=== PATIENT | male | born 1965 | race Hispanic/Latino ===

== ENCOUNTER 2017-09-13 23:44 | Inpatient (IN) | payer BC ==
[2017-09-14] MEDS ORDERED: Sodium Chloride 0.9% 1,000 ML IV STA (00:10)
[2017-09-14] MEDS ORDERED: Ciprofloxacin 400mg/200ml D5W 400 MG/200 ML BAG IVPB STA (00:12)
[2017-09-14] MEDS ORDERED: metroNIDAZOLE IV 500 mg/100 ml 500 MG/100 ML BAG IVPB STA (00:12)
[2017-09-14] MEDS ORDERED: Iohexol 350 MG/100 ML VIAL ONE (00:18)
--- NOTE | 2017-09-14 00:34 | ED PDOC ---
Arrival/HPI - General Chief Complaint: GI Problem Time Seen by Provider: 09/14/17 00:09 Historian: Patient - History of Present Illness Narrative History of Present Illness (Text): 09/14/17 00:32 A 52 year old male presents to the emergency department complaining of left lower quadrant abdominal pain. Patient was seen and treated at [facility] in [place], [place] on 09/08/17. Patient was diagnosed with diverticulitis and had a CAT scan of abdomen/pelvis done. Presents to the emergency department with discharge paperwork that revealed sigmoid diverticulitis 10 mm by 20 mm in the sigmoid colon. Patient was offered admission but declined. Patient was treated with Cipro and Flagyl for a week. Reports pain is still present with no significant improvement. Patient notes loose stools but denies any fever, chills, nausea, vomiting, recent travels, back pain, urinary symptoms or any other complaints at this time. GI recommended that if pain does not improve in 2-3 days, patient to be admitted to hospital for IV fluids. PMD: Dr. Chauhan Symptom Onset: Sudden Symptom Course: Unchanged Activities at Onset: Rest Context: Home Past Medical History - Provider Review Nursing Documentation Reviewed: Yes - Cardiac Hx Pacemaker: No - Neurological Hx Paralysis: No - Hematological/Oncological Hx Blood Transfusions: No Hx Blood Transfusion Reaction: No - Musculoskeletal/Rheumatological Hx Musculoskeletal Disorders: Yes - Gastrointestinal Hx Diverticulitis: Yes - Psychiatric Hx Emotional Abuse: No Hx Physical Abuse: No Hx Substance Use: No - Anesthesia Hx Anesthesia Reactions: No Hx Malignant Hyperthermia: No - Suicidal Assessment Feels Threatened In Home Enviroment: No Family/Social History - Physician Review Nursing Documentation Reviewed: Yes Family/Social History: No Known Family HX Smoking Status: y Hx Alcohol Use: Yes (A "FEW" BEERS EVERY WEEK) Hx Substance Use: No Allergies/Home Meds Allergies/Adverse Reactions: Allergies No Known Allergies Allergy (Verified 07/05/16 08:15) Home Medications: Home Meds Medication Instructions Recorded Confirmed Ciprofloxacin [Cipro] 500 mg PO BID 09/13/17 09/14/17 metroNIDAZOLE [Flagyl] 500 mg PO TID 09/13/17 09/14/17 Review of Systems - Physician Review All systems were reviewed & negative as marked: Yes - Review of Systems Constitutional: absent: Fevers, Other (chills) Gastrointestinal: Abdominal Pain (LLQ), Other (loose stools). absent: Nausea, Vomiting Genitourinary Male: absent: Dysuria, Frequency, Hematuria Musculoskeletal: absent: Back Pain Physical Exam Vital Signs Reviewed: Yes Vital Signs Temp Pulse Resp BP Pulse Ox 09/13/17 23:48 97.7 F 72 18 118/72 99 Temperature: Afebrile Blood Pressure: Normal Pulse: Regular Respiratory Rate: Normal Appearance: Positive for: Well-Appearing, Non-Toxic, Comfortable Pain Distress: None Mental Status: Positive for: Alert and Oriented X 3 - Systems Exam Head: Present: Atraumatic, Normocephalic Pupils: Present: PERRL Extroacular Muscles: Present: EOMI Conjunctiva: Present: Normal Mouth: Present: Moist Mucous Membranes Neck: Present: Normal Range of Motion Respiratory/Chest: Present: Clear to Auscultation, Good Air Exchange. No: Respiratory Distress, Accessory Muscle Use Cardiovascular: Present: Regular Rate and Rhythm, Normal S1, S2. No: Murmurs Abdomen: Present: Tenderness (LLQ), Normal Bowel Sounds. No: Distention, Peritoneal Signs Back: Present: Normal Inspection Upper Extremity: Present: Normal Inspection. No: Cyanosis, Edema Lower Extremity: Present: Normal Inspection. No: Edema Neurological: Present: GCS=15, CN II-XII Intact, Speech Normal Skin: Present: Warm, Dry, Normal Color. No: Rashes Psychiatric: Present: Alert, Oriented x 3, Normal Insight, Normal Concentration Medical Decision Making ED Course and Treatment: 09/14/17 00:30 Impression: A 52 year old male with abdominal pain. Patient has left lower quadrant abdominal tenderness on physical exam. Plan: -- CT abd/pelvis -- labs -- Cipro, IV fluids, Flagyl -- Urinalysis -- Reassess and disposition Progress Notes: Labwork and CT from [facility]: Labs showed patient to have WBC of 13.2. CT Abd/Pelvis with contrast on 09/08/17 Impression: 1. Sigmoid diverticulitis. Findings are generally mild although there is a 10 mm X 20 mm fluid and air-filled structure abutting the anterior sigmoid colon which could represents a small developing abscess, although this could simply represent the inflamed, involved diverticulum. No bowel obstruction or free air. Case d/w Dr. Dee, agrees with plan for inpatient admission. president and ceo made aware of admission. CT Abdomen and Pelvis With Intravenous Contrast FINDINGS: Lower thorax: Probable small hiatal hernia. ABDOMEN: Liver: Few enhancing lesions within LEFT lobe, up to 2.0 cm. Gallbladder and bile ducts: No calcified stones. No ductal dilation. Pancreas: No ductal dilation. No mass. Spleen: No splenomegaly. Adrenals: No mass. Kidneys and ureters: No mass. No hydronephrosis. Stomach and bowel: Scattered diverticula within colon. Mild mural thickening short segment of proximal sigmoid colon. Mild stranding within adjacent fat with 1.9 x 1.3 x 1.6 cm air and fluid collection. No obstruction. Appendix: Normal caliber. No inflammation. PELVIS: Bladder: Unremarkable. Reproductive: Unremarkable as visualized. ABDOMEN and PELVIS: Intraperitoneal space: No free air. Bones/joints: Degenerative changes of lower lumbar spine. No acute fracture. Soft tissues: Small inguinal hernias containing fat. Vasculature: Mild atherosclerotic disease. No aneurysm. Lymph nodes: No pathologically enlarged lymph nodes. IMPRESSION: 1. Findings compatible with acute diverticulitis of sigmoid colon with small diverticular abscess. Recommend endoscopy following resolution. 2. Liver lesions, indeterminate. Recommend nonemergent MRI. 3. Incidental/non-acute findings are described above. Dictated and Authenticated by: Chaparro Avalos MD 09/14/2017 3:26 AM Eastern Time ([place] & [place]) - Lab Interpretations I have reviewed the lab results: Yes - RAD Interpretation Radiology Orders: 09/14/17 00:12 ABD & PELVIS IV CONTRAST ONLY [CT] Stat - Medication Orders Current Medication Orders: Sodium Chloride (Sodium Chloride 0.9%) 1,000 mls @ 100 mls/hr IV .Q10H STA Stop: 09/14/17 10:09 Last Admin: 09/14/17 01:10 Dose: 100 mls/hr eMAR Start Stop Document 09/14/17 01:10 HIEN (Rec: 09/14/17 01:52 HIEN [id number]) Intravenous Solution Start Date 09/14/17 Start Time 01:15 End Date 09/14/17 End time 01:52 Total Infusion Time 37 Ciprofloxacin (Cipro 400mg/200ml Dsw) 400 mg in 200 mls @ 133.3 mls/hr IVPB Q12 ANUSHA PRN Reason: Protocol Stop: 09/14/17 14:31 Metronidazole (Flagyl) 500 mg in 100 mls @ 100 mls/hr IVPB Q8 ANUSHA PRN Reason: Protocol Sodium Chloride (Sodium Chloride 0.9%) 1,000 mls @ 140 mls/hr IV .Q7H9M ANUSHA Last Admin: 09/14/17 01:51 Dose: 140 mls/hr eMAR Start Stop Document 09/14/17 01:51 HIEN (Rec: 09/14/17 01:52 HIEN [id number]) Intravenous Solution Start Date 09/14/17 Start Time 01:51 Pantoprazole Sodium (Protonix Inj) 40 mg IVP DAILY ANUSHA Discontinued Medications Diphenhydramine HCl (Benadryl) 50 mg PO HS ONE Stop: 09/14/17 03:17 Ciprofloxacin (Cipro 400mg/200ml Dsw) 400 mg in 200 mls @ 133.3 mls/hr IVPB STAT STA PRN Reason: Protocol Stop: 09/14/17 01:42 Last Admin: 09/14/17 01:46 Dose: 133.3 mls/hr eMAR Start Stop Document 09/14/17 01:46 HIEN (Rec: 09/14/17 01:46 HIEN [id number]) Intravenous Solution Start Date 09/14/17 Start Time 01:46 End Date 09/14/17 End time 03:15 Total Infusion Time 89 Metronidazole (Flagyl) 500 mg in 100 mls @ 100 mls/hr IVPB STAT STA PRN Reason: Protocol Stop: 09/14/17 01:11 Last Admin: 09/14/17 01:15 Dose: 100 mls/hr eMAR Start Stop Document 09/14/17 01:15 HIEN (Rec: 09/14/17 01:46 HIEN [id number]) Intravenous Solution Start Date 09/14/17 Start Time 01:15 End Date 09/14/17 End time 01:45 Total Infusion Time 30 - PA / PORTFOLIO ADMINISTRATOR / Resident Statement MD/DO has reviewed & agrees with the documentation as recorded. - Scribe Statement The provider has reviewed the documentation as recorded by the Alka Ulloa Provider Scribe Attestation: All medical record entries made by the Scribe were at my direction and personally dictated by me. I have reviewed the chart and agree that the record accurately reflects my personal performance of the history, physical exam, medical decision making, and the department course for this patient. I have also personally directed, reviewed, and agree with the discharge instructions and disposition. Disposition/Present on Arrival - Present on Arrival Any Indicators Present on Arrival: No History of DVT/PE: No History of Uncontrolled Diabetes: No Urinary Catheter: No History of Decub. Ulcer: No History Surgical Site Infection Following: None - Disposition Have Diagnosis and Disposition been Completed?: Yes Diagnosis: Acute diverticulitis Disposition: HOSPITALIZED Disposition Time: 00:30 Patient Plan: Admission Patient Problems: Current Active Problems Problem Status Onset Acute diverticulitis Acute Condition: STABLE
[2017-09-14 01:11] LABS: BASO # 0.04 K/mm3 (0.0-2.0); BASO % 0.5 % (0.0-3.0); EOS # 0.3 (0.0-0.7); EOS % 3.6 % (1.5-5.0); GRAN # 3.8 (1.4-6.5); GRAN % 48.7 % (50.0-68.0); HEMATOCRIT 43.1 % (42.0-52.0); LYMPH % 38.5 % (22.0-35.0); MEAN CELL VOLUME 91.7 fl (80.0-105.0); MEAN CORPUSCULAR HEMOGLOBIN 31.7 pg (25.0-35.0); MEAN CORPUSCULAR HGB CONC 34.6 g/dl (31.0-37.0); MEAN PLATELET VOLUME 8.8 fl (7.0-11.0); MONO # 0.7 (0.1-0.6); MONO % 8.7 % (1.0-6.0); RED CELL DISTRIBUTION WIDTH 12.2 % (11.5-14.5); WHITE BLOOD COUNT 7.8 10^3/ul (4.5-11.0)
[2017-09-14 01:17] LABS: INR 1.11 (0.93-1.08); PARTIAL THROMBOPLASTIN TIME 29.4 Seconds (23.7-30.8)
[2017-09-14 01:20] LABS: ALB/GLOB RATIO 1.5 (1.1-1.8); ALKALINE PHOSPHATASE 55 U/L (38-126); ALT/SGPT 63 U/L (7-56); AST/SGOT 61 U/L (17-59); BILIRUBIN,TOTAL 0.4 mg/dL (0.2-1.3); BLOOD UREA NITROGEN 22 mg/dL (7-21); CALCIUM 9.7 mg/dL (8.4-10.5); CARBON DIOXIDE 24 mmol/L (21-33); CHLORIDE 108 mmol/L (98-107); GFR AFRICAN-AMERICAN > 60; GLUCOSE,RANDOM 90 mg/dL (70-110); LIPASE 247 U/L (23-300); POTASSIUM 4.3 mmol/L (3.6-5.0); SODIUM 143 mmol/L (132-148); TOTAL PROTEIN 7.1 g/dL (5.8-8.3)
--- NOTE | 2017-09-14 01:24 | CP.PCM.HP ---
<ALICE BATES - Last Filed: 09/14/17 01:14> History of Present Illness - History of Present Illness History of Present Illness: CC: Abdominal Pain Pt is a 52 yo male with PMH of GERD and diverticulosis presents with c/o of LLQ abdominal pain. Pt states that he experienced sharp, stabbing pain about 1 week ago. At that time, pt went to [facility], in which a CT was obtained that showed a [id number] diverticular abscess. He was given IV abx in the ED and then discharged with PO ciprofloxacin and metronidazole. Pt followed up with Dr. Leos as an outpatient last Saturday and was instructed to continue PO abx and return to ED if his symptoms worsened. Pt states that his symptoms did not resolve, thus today he came to [facility] for medical evaluation. Pt states that the pain is still sharp in the LLQ. Pt states that he has some loose stools that appeared dark. Pt admits to chills. Pt denied n/v, fever, hematochezia, CP, SOB , BRADY, fatigue, recent weight loss, or dysuria. Pt states that diet is high in protein, probiotics, and low in fiber. Last colonscopy was 1 year ago, which showed polyps and diverticulosis. PMD: Ded[place]is PMH: GERD, diverticulosis Surg: Hernia, Left hand surgery, Heel spur surgery FHx: Non-contributory All: NKDA SH: Former 1ppd x 30 yr smoker, quit 6 years ago. Social EtOH use. Denied illicit drug use. Medications reviewed as per MAR Present on Admission - Present on Admission Any Indicators Present on Admission: No Review of Systems - Review of Systems Review of Systems: 12 point ROS was reviewed and negative other than what is stated in HPI. Past Patient History - Past Social History Smoking Status: y - CARDIAC Hx Pacemaker: No - NEUROLOGICAL Hx Paralysis: No - HEMATOLOGICAL/ONCOLOGICAL Hx Blood Transfusions: No Hx Blood Transfusion Reaction: No - MUSCULOSKELETAL/RHEUMATOLOGICAL Hx Musculoskeletal Disorders: Yes - GASTROINTESTINAL Hx Diverticulitis: Yes - PSYCHIATRIC Hx Emotional Abuse: No Hx Physical Abuse: No Hx Substance Use: No - SURGICAL HISTORY Hx Surgeries: Yes (RIGHT SHOULDER SX TO OPEN AC JOINT,HERNIA REPAIR,) - ANESTHESIA Hx Anesthesia Reactions: No Hx Malignant Hyperthermia: No Meds Allergies/Adverse Reactions: Allergies Allergy/AdvReac Type Severity Reaction Status Date / Time No Known Allergies Allergy Verified 07/05/16 08:15 Physical Exam - Constitutional Appears: No Acute Distress - Head Exam Head Exam: ATRAUMATIC, NORMOCEPHALIC - Eye Exam Eye Exam: EOMI, PERRL - ENT Exam ENT Exam: Mucous Membranes Moist - Neck Exam Neck exam: Positive for: Full Rom. Negative for: Lymphadenopathy, Tenderness, Thyromegaly - Respiratory Exam Respiratory Exam: Clear to Auscultation Bilateral. absent: Rales, Rhonchi, Wheezes - Cardiovascular Exam Cardiovascular Exam: RRR, +S1, +S2. absent: Diastolic murmur, Gallop, Rubs, Systolic Murmur - GI/Abdominal Exam GI & Abdominal Exam: Soft, Tenderness (LLQ). absent: Distended, Guarding, Organomegaly, Rebound - Extremities Exam Extremities exam: Positive for: normal inspection - Neurological Exam Neurological exam: Alert, Oriented x3 - Psychiatric Exam Psychiatric exam: Normal Affect, Normal Mood - Skin Skin Exam: Dry, Intact, Normal Color Results - Vital Signs Recent Vital Signs: Last Vital Signs Temp 97.7 F 09/13/17 23:48 Pulse 72 09/13/17 23:48 Resp 18 09/13/17 23:48 BP 118/72 09/13/17 23:48 Pulse Ox 99 09/13/17 23:48 - Labs Result Diagrams: 09/14/17 00:28 Labs: Laboratory Results - last 24 hr 09/14/17 00:28 WBC 7.8 RBC 4.70 Hgb 14.9 Hct 43.1 MCV 91.7 MCH 31.7 MCHC 34.6 RDW 12.2 Plt Count 278 MPV 8.8 Gran % 48.7 L Lymph % (Auto) 38.5 H Billings % (Auto) 8.7 H Eos % (Auto) 3.6 Baso % (Auto) 0.5 Gran # 3.80 Lymph # 3.0 Billings # 0.7 H Eos # 0.3 Baso # 0.04 Assessment & Plan - Assessment and Plan (Free Text) Assessment: 52 yo male with PMH of GERD and diverticulosis presents with LLQ pain will be admitted for evaluation and treatment for acute diverticulitis. Plan: 1. Acute Diverticulitis - GI consulted - Cipro 400 mg IVPB q12 - Flagyl 500 mg IVPB q8 - NPO - IVF: NS at 140 mls/hr - F/u CT abdomen, stool occult blood GI/DVT PPx - Protonix - SCDs Pt discussed in detail with attending. Sekou Bates, PGY1 <Gigi Dee - Last Filed: 09/14/17 08:27> Results - Vital Signs Recent Vital Signs: Last Vital Signs Temp 97.6 F 09/14/17 02:47 Pulse 62 09/14/17 02:47 Resp 20 09/14/17 02:47 BP 125/91 H 09/14/17 02:47 Pulse Ox 99 09/13/17 23:48 - Labs Result Diagrams: 09/14/17 00:28 09/14/17 00:28 Labs: Laboratory Results - last 24 hr 09/14/17 09/14/17 09/14/17 00:28 00:28 00:28 WBC 7.8 RBC 4.70 Hgb 14.9 Hct 43.1 MCV 91.7 MCH 31.7 MCHC 34.6 RDW 12.2 Plt Count 278 MPV 8.8 Gran % 48.7 L Lymph % (Auto) 38.5 H Billings % (Auto) 8.7 H Eos % (Auto) 3.6 Baso % (Auto) 0.5 Gran # 3.80 Lymph # 3.0 Billings # 0.7 H Eos # 0.3 Baso # 0.04 PT 12.0 H INR 1.11 H APTT 29.4 Sodium 143 Potassium 4.3 Chloride 108 H Carbon Dioxide 24 Anion Gap 15 BUN 22 H Creatinine 1.3 Est GFR ( Amer) > 60 Est GFR (Non-Af Amer) 58 Random Glucose 90 Calcium 9.7 Phosphorus Magnesium Total Bilirubin 0.4 AST 61 H ALT 63 H Alkaline Phosphatase 55 Total Protein 7.1 Albumin 4.3 Globulin 2.9 Albumin/Globulin Ratio 1.5 Lipase 247 09/14/17 00:28 WBC RBC Hgb Hct MCV MCH MCHC RDW Plt Count MPV Gran % Lymph % (Auto) Billings % (Auto) Eos % (Auto) Baso % (Auto) Gran # Lymph # Billings # Eos # Baso # PT INR APTT Sodium Potassium Chloride Carbon Dioxide Anion Gap BUN Creatinine Est GFR ( Amer) Est GFR (Non-Af Amer) Random Glucose Calcium Phosphorus 4.3 Magnesium 2.2 Total Bilirubin AST ALT Alkaline Phosphatase Total Protein Albumin Globulin Albumin/Globulin Ratio Lipase Assessment & Plan - Assessment and Plan (Free Text) Plan: discussed w/ resident went over meds labs orders
[2017-09-14] MEDS: Sodium Chloride 0.9% 1,000 ML IV SCH ×2 (01:51→03:28)
[2017-09-14 02:10] LABS: MAGNESIUM 2.2 mg/dL (1.7-2.2); PHOSPHOROUS 4.3 mg/dL (2.5-4.5)
[2017-09-14 03:02] VITALS: BMI 25.5
--- NOTE | 2017-09-14 03:26 | CT ---
EXAM: CT Abdomen and Pelvis With Intravenous Contrast CLINICAL HISTORY: 52 years old, male; Pain; Abdominal pain; Acute TECHNIQUE: Axial computed tomography images of the abdomen and pelvis with intravenous contrast. All CT scans at this facility use one or more dose reduction techniques, viz.: automated exposure control; ma/kV adjustment per patient size (including targeted exams where dose is matched to indication; i.e. head); or iterative reconstruction technique. Coronal and sagittal reformatted images were created and reviewed. CONTRAST: 100 mL of OMNI 350 administered intravenously. COMPARISON: No relevant prior studies available. FINDINGS: Lower thorax: Probable small hiatal hernia. ABDOMEN: Liver: Few enhancing lesions within LEFT lobe, up to 2.0 cm. Gallbladder and bile ducts: No calcified stones. No ductal dilation. Pancreas: No ductal dilation. No mass. Spleen: No splenomegaly. Adrenals: No mass. Kidneys and ureters: No mass. No hydronephrosis. Stomach and bowel: Scattered diverticula within colon. Mild mural thickening short segment of proximal sigmoid colon. Mild stranding within adjacent fat with 1.9 x 1.3 x 1.6 cm air and fluid collection. No obstruction. Appendix: Normal caliber. No inflammation. PELVIS: Bladder: Unremarkable. Reproductive: Unremarkable as visualized. ABDOMEN and PELVIS: Intraperitoneal space: No free air. Bones/joints: Degenerative changes of lower lumbar spine. No acute fracture. Soft tissues: Small inguinal hernias containing fat. Vasculature: Mild atherosclerotic disease. No aneurysm. Lymph nodes: No pathologically enlarged lymph nodes. IMPRESSION: 1. Findings compatible with acute diverticulitis of sigmoid colon with small diverticular abscess. Recommend endoscopy following resolution. 2. Liver lesions, indeterminate. Recommend nonemergent MRI. 3. Incidental/non-acute findings are described above.
[2017-09-14] MEDS: metroNIDAZOLE IV 500 mg/100 ml 500 MG/100 ML BAG IVPB SCH ×3 (05:35→21:28)
--- NOTE | 2017-09-14 11:05 | CP.PCM.CON ---
<CrespoAbiodun - Last Filed: 09/14/17 11:37> History of Present Illness - History of Present Illness History of Present Illness: PGY4 Initial GI Consult Sekou Mitchell is a 52M w/ hx of GERD and diverticulosis presents with c/o of LLQ abdominal pain. Pt states that he was recently diagnosed with complicated acute diverticulitis. He states that he experienced LLQ staring 1 week prior, which bought him to [facility] for further Eval. He was diagnoised on a CT with acute diverticulitis and a [id number] diverticular abscess. He was given IV abx in the ED and then discharged with PO ciprofloxacin and metronidazole. Pt followed up with Dr. Leos as an outpatient last Saturday and was instructed to continue PO abx and return to ED if his symptoms worsened. Pt states that his symptoms did not resolve, thus today he came to [place] for medical evaluation. Pt states that the pain is still sharp in the LLQ, though his pain is significantly improved since onset. He was cpncerned about the abscess and wanted further eval. He states that he had chills and possible fever. that he has some loose stools that appeared dark. Pt denied n/v, hematochezia, BRBPR, coffee-ground emesis, melena, or recent weight loss. Last colonscopy was 1 year ago, which showed polyps and diverticulosis. PMD: [place] PMH: GERD, diverticulosis Surg: Hernia, Left hand surgery, Heel spur surgery FHx: Denies any family hx of colon ca All: NKDA SH: Former 1ppd x 30 yr smoker, quit 6 years ago. Social EtOH use. Denied illicit drug use. Endoscopy Hx: 07/2016 EGD: gastritis, gastric polyp;07/2016 colonoscopy: diverticulosis, solitary sigmoid ulcer, x1 tubular adenoma and hyperplasic polyp ROS: 12-point ROS conducted, neg other than above Past Patient History - Past Social History Smoking Status: y - CARDIAC Hx Pacemaker: No - NEUROLOGICAL Hx Paralysis: No - HEMATOLOGICAL/ONCOLOGICAL Hx Blood Transfusions: No Hx Blood Transfusion Reaction: No - MUSCULOSKELETAL/RHEUMATOLOGICAL Hx Musculoskeletal Disorders: Yes - GASTROINTESTINAL Hx Diverticulitis: Yes - PSYCHIATRIC Hx Emotional Abuse: No Hx Physical Abuse: No Hx Substance Use: No - SURGICAL HISTORY Hx Surgeries: Yes (RIGHT SHOULDER SX TO OPEN AC JOINT,HERNIA REPAIR,) - ANESTHESIA Hx Anesthesia Reactions: No Hx Malignant Hyperthermia: No Meds Allergies/Adverse Reactions: Allergies Allergy/AdvReac Type Severity Reaction Status Date / Time No Known Allergies Allergy Verified 07/05/16 08:15 - Medications Medications: Current Medications Ciprofloxacin (Cipro 400mg/200ml Dsw) 400 mg in 200 mls @ 133.3 mls/hr IVPB Q12 ANUSHA PRN Reason: Protocol Stop: 09/14/17 14:31 Metronidazole (Flagyl) 500 mg in 100 mls @ 100 mls/hr IVPB Q8 ANUSHA PRN Reason: Protocol Last Admin: 09/14/17 05:35 Dose: 100 mls/hr Sodium Chloride (Sodium Chloride 0.9%) 1,000 mls @ 140 mls/hr IV .Q7H9M ANUSHA Last Admin: 09/14/17 03:28 Dose: 140 mls/hr Pantoprazole Sodium (Protonix Inj) 40 mg IVP DAILY [facility] Last Admin: 09/14/17 09:55 Dose: 40 mg Physical Exam - Constitutional Appears: Well, No Acute Distress - Head Exam Head Exam: ATRAUMATIC, NORMOCEPHALIC - ENT Exam ENT Exam: Mucous Membranes Moist - Respiratory Exam Respiratory Exam: Clear to Auscultation Bilateral, NORMAL BREATHING PATTERN. absent: Prolonged Expiratory Phase, Rales, Rhonchi, Wheezes, Respiratory Distress - Cardiovascular Exam Cardiovascular Exam: REGULAR RHYTHM, +S1, +S2 - GI/Abdominal Exam GI & Abdominal Exam: Normal Bowel Sounds, Soft, Tenderness (LLQ). absent: Firm , Guarding, Organomegaly, Rebound - Extremities Exam Extremities exam: Negative for: joint swelling, pedal edema - Neurological Exam Neurological exam: Alert, Oriented x3 - Psychiatric Exam Psychiatric exam: Normal Affect, Normal Mood - Skin Skin Exam: Dry, Intact, Normal Color, Warm Results - Vital Signs Recent Vital Signs: Last Vital Signs Temp 97.9 F 09/14/17 08:00 Pulse 60 09/14/17 08:00 Resp 20 09/14/17 08:00 BP 117/84 09/14/17 08:00 Pulse Ox 98 09/14/17 08:00 - Labs Result Diagrams: 09/14/17 00:28 09/14/17 00:28 Labs: Laboratory Results - last 24 hr 09/14/17 09/14/17 09/14/17 00:28 00:28 00:28 WBC 7.8 RBC 4.70 Hgb 14.9 Hct 43.1 MCV 91.7 MCH 31.7 MCHC 34.6 RDW 12.2 Plt Count 278 MPV 8.8 Gran % 48.7 L Lymph % (Auto) 38.5 H [place] % (Auto) 8.7 H Eos % (Auto) 3.6 Baso % (Auto) 0.5 Gran # 3.80 Lymph # 3.0 [place] # 0.7 H Eos # 0.3 Baso # 0.04 PT 12.0 H INR 1.11 H APTT 29.4 Sodium 143 Potassium 4.3 Chloride 108 H Carbon Dioxide 24 Anion Gap 15 BUN 22 H Creatinine 1.3 Est GFR ( Amer) > 60 Est GFR (Non-Af Amer) 58 Random Glucose 90 Calcium 9.7 Phosphorus Magnesium Total Bilirubin 0.4 AST 61 H ALT 63 H Alkaline Phosphatase 55 Total Protein 7.1 Albumin 4.3 Globulin 2.9 Albumin/Globulin Ratio 1.5 Lipase 247 09/14/17 00:28 WBC RBC Hgb Hct MCV MCH MCHC RDW Plt Count MPV Gran % Lymph % (Auto) [place] % (Auto) Eos % (Auto) Baso % (Auto) Gran # Lymph # [place] # Eos # Baso # PT INR APTT Sodium Potassium Chloride Carbon Dioxide Anion Gap BUN Creatinine Est GFR ( Amer) Est GFR (Non-Af Amer) Random Glucose Calcium Phosphorus 4.3 Magnesium 2.2 Total Bilirubin AST ALT Alkaline Phosphatase Total Protein Albumin Globulin Albumin/Globulin Ratio Lipase Assessment & Plan - Assessment and Plan (Free Text) Assessment: Sekou Mitchell is a 52M hx of GERD and diverticulitis who presents with LLQ pain. Etiology is likely 2/2 Acute Sigmoid Diverticulitis complicated with sigmoid abcsess Acute Sigmoid Diverticulitis complicated with sigmoid abcsess Hx of Diverticulosis Hx of tubular adenoma GERD Plan: -continue antibiotics -consult general surgery -start liquid diet and advance as tolerated -wait on surgery recommendation -will eventually need colonscopy 6-8 weeks afterwards to rule out malignancy -fluid collection may be too small to aspirate, will wait on surgery for recommendations -F/U Dr. Leos in 6 weeks -will follow D/W Dr. Umanzor <Js Umanzor - Last Filed: 09/14/17 12:25> Meds - Medications Medications: Current Medications Ciprofloxacin (Cipro 400mg/200ml Dsw) 400 mg in 200 mls @ 133.3 mls/hr IVPB Q12 ANUSHA PRN Reason: Protocol Stop: 09/14/17 14:31 Metronidazole (Flagyl) 500 mg in 100 mls @ 100 mls/hr IVPB Q8 ANUSHA PRN Reason: Protocol Last Admin: 09/14/17 05:35 Dose: 100 mls/hr Sodium Chloride (Sodium Chloride 0.9%) 1,000 mls @ 140 mls/hr IV .Q7H9M ANUSHA Last Admin: 09/14/17 03:28 Dose: 140 mls/hr Pantoprazole Sodium (Protonix Inj) 40 mg IVP DAILY [facility] Last Admin: 09/14/17 09:55 Dose: 40 mg Results - Vital Signs Recent Vital Signs: Last Vital Signs Temp 97.9 F 09/14/17 08:00 Pulse 60 09/14/17 08:00 Resp 20 09/14/17 08:00 BP 117/84 09/14/17 08:00 Pulse Ox 98 09/14/17 08:00 - Labs Result Diagrams: 09/14/17 00:28 09/14/17 00:28 Labs: Laboratory Results - last 24 hr 09/14/17 09/14/17 09/14/17 00:28 00:28 00:28 WBC 7.8 RBC 4.70 Hgb 14.9 Hct 43.1 MCV 91.7 MCH 31.7 MCHC 34.6 RDW 12.2 Plt Count 278 MPV 8.8 Gran % 48.7 L Lymph % (Auto) 38.5 H [place] % (Auto) 8.7 H Eos % (Auto) 3.6 Baso % (Auto) 0.5 Gran # 3.80 Lymph # 3.0 [place] # 0.7 H Eos # 0.3 Baso # 0.04 PT 12.0 H INR 1.11 H APTT 29.4 Sodium 143 Potassium 4.3 Chloride 108 H Carbon Dioxide 24 Anion Gap 15 BUN 22 H Creatinine 1.3 Est GFR ( Amer) > 60 Est GFR (Non-Af Amer) 58 Random Glucose 90 Calcium 9.7 Phosphorus Magnesium Total Bilirubin 0.4 AST 61 H ALT 63 H Alkaline Phosphatase 55 Total Protein 7.1 Albumin 4.3 Globulin 2.9 Albumin/Globulin Ratio 1.5 Lipase 247 Hepatitis A IgM Ab Hep Bs Antigen Hep B Core IgM Ab 09/14/17 09/14/17 00:28 08:14 WBC RBC Hgb Hct MCV MCH MCHC RDW Plt Count MPV Gran % Lymph % (Auto) [place] % (Auto) Eos % (Auto) Baso % (Auto) Gran # Lymph # [place] # Eos # Baso # PT INR APTT Sodium Potassium Chloride Carbon Dioxide Anion Gap BUN Creatinine Est GFR ( Amer) Est GFR (Non-Af Amer) Random Glucose Calcium Phosphorus 4.3 Magnesium 2.2 Total Bilirubin AST ALT Alkaline Phosphatase Total Protein Albumin Globulin Albumin/Globulin Ratio Lipase Hepatitis A IgM Ab Negative Hep Bs Antigen Negative Hep B Core IgM Ab Negative Attending/Attestation - Attestation I have personally seen and examined this patient.: Yes I have fully participated in the care of the patient.: Yes I have reviewed all pertinent clinical information: Yes Notes (Text): 09/14/17 12:21 52year old male with h/o GERD admitted with acute complicated diverticulitis. 1. Acute diverticulitis 2. Elevated lfts 3. Liver lesion Plan: -diverticulitis c/b small abscess/microperforation -medically stable, no peritoneal signs -recommend surgical evaluation -continue IV antibiotics -liquid diet for now -outpatient colonoscopy after acute issues resolve -mildly elevated lfts, check hepatitis panel for now -liver lesions are very small/non-specific -consider outpatient MRI for follow up of liver -will follow
[2017-09-14] MEDS ORDERED: Ciprofloxacin 400mg/200ml D5W 400 MG/200 ML BAG IVPB SCH (13:00)
[2017-09-15] MEDS: Sodium Chloride 0.9% 1,000 ML IV SCH ×3 (04:55→17:17)
[2017-09-15] MEDS: metroNIDAZOLE IV 500 mg/100 ml 500 MG/100 ML BAG IVPB SCH ×3 (06:00→22:24)
[2017-09-15 07:48] LABS: HEMATOCRIT 41.4 % (42.0-52.0); MEAN CELL VOLUME 92.4 fl (80.0-105.0); MEAN CORPUSCULAR HGB CONC 33.6 g/dl (31.0-37.0); MEAN PLATELET VOLUME 8.6 fl (7.0-11.0); RED CELL DISTRIBUTION WIDTH 12.1 % (11.5-14.5); WHITE BLOOD COUNT 6.4 10^3/ul (4.5-11.0)
[2017-09-15 08:08] LABS: ALB/GLOB RATIO 1.3 (1.1-1.8); ALKALINE PHOSPHATASE 49 U/L (38-126); ALT/SGPT 55 U/L (7-56); AST/SGOT 40 U/L (17-59); BILIRUBIN,TOTAL 0.6 mg/dL (0.2-1.3); BLOOD UREA NITROGEN 13 mg/dL (7-21); CALCIUM 8.6 mg/dL (8.4-10.5); CARBON DIOXIDE 24 mmol/L (21-33); CHLORIDE 109 mmol/L (98-107); GFR AFRICAN-AMERICAN > 60; GLUCOSE,RANDOM 79 mg/dL (70-110); SODIUM 142 mmol/L (132-148); TOTAL PROTEIN 5.9 g/dL (5.8-8.3)
[2017-09-15] MEDS ORDERED: Ciprofloxacin 400mg/200ml D5W 400 MG/200 ML BAG IVPB SCH (10:00)
--- NOTE | 2017-09-15 11:27 | CP.PCM.PN ---
<Victor Hugo Grossman - Last Filed: 09/15/17 11:22> Subjective - Date & Time of Evaluation Date of Evaluation: 09/15/17 Time of Evaluation: 07:00 - Subjective Subjective: Dr. Chauhan Service Pt was seen and examined at bedside. No acute complaints at this time. Pt states his pain is much improved from yesterday. No acute or adverse events overnight as per nursing staff. Pt had a normally formed bm this morning. Pt is tolerating liquid diet. Pt denied fever, chill, sob, chest pains, abdominal pain , n/v/d/c or urinary symptoms. Objective - Vital Signs/Intake and Output Vital Signs (last 24 hours): Temp Pulse Resp BP Pulse Ox 97.7 F 55 L 20 123/82 97 09/15/17 08:00 09/15/17 08:00 09/15/17 08:00 09/15/17 08:00 09/15/17 08:00 Intake and Output: 09/15/17 09/15/17 06:59 18:59 Intake Total 0 0 Balance 0 0 - Medications Medications: Current Medications Metronidazole (Flagyl) 500 mg in 100 mls @ 100 mls/hr IVPB Q8 ANUSHA PRN Reason: Protocol Last Admin: 09/15/17 06:00 Dose: 100 mls/hr Sodium Chloride (Sodium Chloride 0.9%) 1,000 mls @ 140 mls/hr IV .Q7H9M ANUSHA Last Admin: 09/15/17 10:10 Dose: 140 mls/hr Ciprofloxacin (Cipro 400mg/200ml Dsw) 400 mg in 200 mls @ 133.3 mls/hr IVPB Q12 ANUSHA PRN Reason: Protocol Stop: 09/15/17 11:31 Last Admin: 09/15/17 10:08 Dose: 133.3 mls/hr Ibuprofen (Motrin Oral Susp) 100 mg PO Q6H PRN PRN Reason: Pain, moderate (4-7) Last Admin: 09/14/17 19:43 Dose: 100 mg Pantoprazole Sodium (Protonix Inj) 40 mg IVP DAILY [facility] Last Admin: 09/15/17 10:07 Dose: 40 mg - Labs Labs: 09/15/17 07:41 09/15/17 07:41 PT 12.0 Seconds (9.9-11.8) H 09/14/17 00:28 INR 1.11 (0.93-1.08) H 09/14/17 00:28 APTT 29.4 Seconds (23.7-30.8) 09/14/17 00:28 - Constitutional Appears: No Acute Distress - Head Exam Head Exam: ATRAUMATIC, NORMAL INSPECTION, NORMOCEPHALIC - Eye Exam Eye Exam: EOMI, Normal appearance, PERRL Pupil Exam: NORMAL ACCOMODATION, PERRL - ENT Exam ENT Exam: Mucous Membranes Moist, Normal Exam - Neck Exam Neck Exam: Full ROM, Normal Inspection. absent: Lymphadenopathy - Respiratory Exam Respiratory Exam: Clear to Ausculation Bilateral, NORMAL BREATHING PATTERN - Cardiovascular Exam Cardiovascular Exam: REGULAR RHYTHM, +S1, +S2. absent: Murmur - GI/Abdominal Exam GI & Abdominal Exam: Soft, Normal Bowel Sounds. absent: Tenderness - Rectal Exam Rectal Exam: NORMAL INSPECTION - Extremities Exam Extremities Exam: Full ROM, Normal Capillary Refill, Normal Inspection. absent : Joint Swelling, Pedal Edema - Neurological Exam Neurological Exam: Alert, Awake, CN II-XII Intact, Normal Gait, Oriented x3 - Psychiatric Exam Psychiatric exam: Normal Affect, Normal Mood - Skin Skin Exam: Dry, Intact, Normal Color, Warm Assessment and Plan - Assessment and Plan (Free Text) Assessment: 52 yo male with PMH of GERD and diverticulosis presents with LLQ pain will be admitted for evaluation and treatment for acute diverticulitis. 1. Acute Diverticulitis - GI consulted, Dr. Erna rdz, recommended to advance diet as tolerated and fu with surgery reccs - IR consulted Dr. Breezy Knight regarding diverticular abscess - Cipro 400 mg IVPB q12 - Flagyl 500 mg IVPB q8 - Full liquid diet - IVF: NS at 140 mls/hr GI/DVT PPx - Protonix - SCDs Seen reviewed and discussed with attending <Gigi Dee - Last Filed: 09/15/17 12:01> Objective - Vital Signs/Intake and Output Vital Signs (last 24 hours): Temp Pulse Resp BP Pulse Ox 97.7 F 55 L 20 123/82 97 09/15/17 08:00 09/15/17 08:00 09/15/17 08:00 09/15/17 08:00 09/15/17 08:00 Intake and Output: 09/15/17 09/15/17 06:59 18:59 Intake Total 0 0 Balance 0 0 - Medications Medications: Current Medications Metronidazole (Flagyl) 500 mg in 100 mls @ 100 mls/hr IVPB Q8 ANUSHA PRN Reason: Protocol Last Admin: 09/15/17 06:00 Dose: 100 mls/hr Sodium Chloride (Sodium Chloride 0.9%) 1,000 mls @ 140 mls/hr IV .Q7H9M ANUSHA Last Admin: 09/15/17 10:10 Dose: 140 mls/hr Ibuprofen (Motrin Oral Susp) 100 mg PO Q6H PRN PRN Reason: Pain, moderate (4-7) Last Admin: 09/14/17 19:43 Dose: 100 mg Pantoprazole Sodium (Protonix Inj) 40 mg IVP DAILY [facility] Last Admin: 09/15/17 10:07 Dose: 40 mg - Labs Labs: 09/15/17 07:41 09/15/17 07:41 PT 12.0 Seconds (9.9-11.8) H 09/14/17 00:28 INR 1.11 (0.93-1.08) H 09/14/17 00:28 APTT 29.4 Seconds (23.7-30.8) 09/14/17 00:28 Assessment and Plan - Assessment and Plan (Free Text) Assessment: seen and reviewed w/ the resident went over meds labs results and discussed at length orders given
--- NOTE | 2017-09-15 12:00 | CP.PCM.PN ---
Subjective - Date & Time of Evaluation Date of Evaluation: 09/15/17 Time of Evaluation: 11:59 - Subjective Subjective: RFV: Diverticulitis S: Improved pain. Significantly reduced. No rectal bleeding, diarrhea, or fever. Feeling better. Objective - Vital Signs/Intake and Output Vital Signs (last 24 hours): Temp Pulse Resp BP Pulse Ox 97.7 F 55 L 20 123/82 97 09/15/17 08:00 09/15/17 08:00 09/15/17 08:00 09/15/17 08:00 09/15/17 08:00 Intake and Output: 09/15/17 09/15/17 06:59 18:59 Intake Total 0 0 Balance 0 0 - Medications Medications: Current Medications Metronidazole (Flagyl) 500 mg in 100 mls @ 100 mls/hr IVPB Q8 ANUSHA PRN Reason: Protocol Last Admin: 09/15/17 06:00 Dose: 100 mls/hr Sodium Chloride (Sodium Chloride 0.9%) 1,000 mls @ 140 mls/hr IV .Q7H9M [facility] Last Admin: 09/15/17 10:10 Dose: 140 mls/hr Ibuprofen (Motrin Oral Susp) 100 mg PO Q6H PRN PRN Reason: Pain, moderate (4-7) Last Admin: 09/14/17 19:43 Dose: 100 mg Pantoprazole Sodium (Protonix Inj) 40 mg IVP DAILY [facility] Last Admin: 09/15/17 10:07 Dose: 40 mg - Labs Labs: 09/15/17 07:41 09/15/17 07:41 PT 12.0 Seconds (9.9-11.8) H 09/14/17 00:28 INR 1.11 (0.93-1.08) H 09/14/17 00:28 APTT 29.4 Seconds (23.7-30.8) 09/14/17 00:28 - Constitutional Appears: No Acute Distress - Head Exam Head Exam: ATRAUMATIC, NORMOCEPHALIC - Eye Exam Eye Exam: Normal appearance Pupil Exam: absent: PERRL - ENT Exam ENT Exam: Mucous Membranes Moist - Respiratory Exam Respiratory Exam: NORMAL BREATHING PATTERN - Cardiovascular Exam Cardiovascular Exam: +S1, +S2 - GI/Abdominal Exam GI & Abdominal Exam: Soft. absent: Guarding, Tenderness - Neurological Exam Neurological Exam: Alert, Oriented x3 Assessment and Plan - Assessment and Plan (Free Text) Assessment: 52year old male with h/o GERD admitted with acute complicated diverticulitis. 1. Acute diverticulitis 2. Elevated lfts 3. Liver lesion Plan: -diverticulitis c/b small abscess/microperforation -medically stable, no peritoneal signs -recommend surgical evaluation, doubt collection will be drainable by IR -continue IV antibiotics -liquid diet -outpatient colonoscopy after acute issues resolve -mildly elevated lfts, viral hepatitis serologies negative, resolved now -liver lesions are very small/non-specific -consider outpatient MRI for follow up of liver -will follow
[2017-09-15 13:51] LABS: URINE BILIRUBIN NEGATIVE (NEGATIVE); URINE BLOOD TRACE-INTACT (NEGATIVE); URINE GLUCOSE (UA) NEGATIVE (NEGATIVE); URINE KETONE NEGATIVE (NEGATIVE); URINE LEUKOCYTE ESTERASE TRACE Leu/uL (NEGATIVE); URINE PROTEIN NEGATIVE mg/dL (<30 mg/dL); URINE UROBILINOGEN 0.2 E.U./dL (<1 E.U./dL)
[2017-09-15 13:57] LABS: URINE APPEARANCE CLEAR (CLEAR); URINE COLOR YELLOW (YELLOW)
[2017-09-15 16:49] VITALS: RESP 18
[2017-09-15] MEDS: Ciprofloxacin 400mg/200ml D5W 400 MG/200 ML BAG IVPB SCH (22:24)
[2017-09-16] MEDS: metroNIDAZOLE IV 500 mg/100 ml 500 MG/100 ML BAG IVPB SCH ×2 (05:07→13:07)
[2017-09-16 07:03] LABS: HEMATOCRIT 39.5 % (42.0-52.0); MEAN CELL VOLUME 92.1 fl (80.0-105.0); MEAN CORPUSCULAR HEMOGLOBIN 30.8 pg (25.0-35.0); MEAN CORPUSCULAR HGB CONC 33.4 g/dl (31.0-37.0); MEAN PLATELET VOLUME 8.7 fl (7.0-11.0); RED CELL DISTRIBUTION WIDTH 12.3 % (11.5-14.5); WHITE BLOOD COUNT 6.5 10^3/ul (4.5-11.0)
[2017-09-16 07:23] LABS: ALB/GLOB RATIO 1.3 (1.1-1.8); ALKALINE PHOSPHATASE 46 U/L (38-126); ALT/SGPT 52 U/L (7-56); AST/SGOT 32 U/L (17-59); BILIRUBIN,TOTAL 0.5 mg/dL (0.2-1.3); BLOOD UREA NITROGEN 11 mg/dL (7-21); CALCIUM 8.6 mg/dL (8.4-10.5); CARBON DIOXIDE 27 mmol/L (21-33); CHLORIDE 111 mmol/L (98-107); GFR AFRICAN-AMERICAN > 60; GLUCOSE,RANDOM 94 mg/dL (70-110); POTASSIUM 4.2 mmol/L (3.6-5.0); SODIUM 145 mmol/L (132-148); TOTAL PROTEIN 5.8 g/dL (5.8-8.3)
[2017-09-16 07:45] VITALS: BP 110/74; PULSE 53; TEMP 97.8; O2SAT 95
[2017-09-16] MEDS: Ciprofloxacin 400mg/200ml D5W 400 MG/200 ML BAG IVPB SCH (09:42)
--- NOTE | 2017-09-16 11:18 | CP.PCM.PN ---
Subjective - Date & Time of Evaluation Date of Evaluation: 09/16/17 Time of Evaluation: 09:15 - Subjective Subjective: PGY4 GI Follow-up Pt seen and examined bedside Denies any abd pain Tolerating reg diet +BM yesterday Denies any fever, chills or diaphoresis ROS: 10 point ROS conducted, neg other than above Objective - Vital Signs/Intake and Output Vital Signs (last 24 hours): Temp Pulse Resp BP Pulse Ox 97.8 F 53 L 18 110/74 95 09/16/17 07:43 09/16/17 07:43 09/16/17 07:43 09/16/17 07:43 09/16/17 07:43 - Medications Medications: Current Medications Metronidazole (Flagyl) 500 mg in 100 mls @ 100 mls/hr IVPB Q8 ANUSHA PRN Reason: Protocol Last Admin: 09/16/17 05:07 Dose: 100 mls/hr Sodium Chloride (Sodium Chloride 0.9%) 1,000 mls @ 140 mls/hr IV .Q7H9M ANUSHA Last Admin: 09/15/17 17:17 Dose: 140 mls/hr Ciprofloxacin (Cipro 400mg/200ml Dsw) 400 mg in 200 mls @ 133.3 mls/hr IVPB Q12 ANUSHA PRN Reason: Protocol Stop: 09/17/17 11:31 Last Admin: 09/16/17 09:42 Dose: 133.3 mls/hr Ibuprofen (Motrin Oral Susp) 100 mg PO Q6H PRN PRN Reason: Pain, moderate (4-7) Last Admin: 09/14/17 19:43 Dose: 100 mg Pantoprazole Sodium (Protonix Inj) 40 mg IVP DAILY [facility] Last Admin: 09/16/17 09:42 Dose: 40 mg - Labs Labs: 09/16/17 06:51 09/16/17 06:47 PT 12.0 Seconds (9.9-11.8) H 09/14/17 00:28 INR 1.11 (0.93-1.08) H 09/14/17 00:28 APTT 29.4 Seconds (23.7-30.8) 09/14/17 00:28 - Constitutional Appears: Well, No Acute Distress - Head Exam Head Exam: ATRAUMATIC, NORMOCEPHALIC - Eye Exam Eye Exam: Normal appearance - ENT Exam ENT Exam: Mucous Membranes Moist - Respiratory Exam Respiratory Exam: Clear to Ausculation Bilateral, NORMAL BREATHING PATTERN. absent: Rales, Rhonchi, Wheezes - Cardiovascular Exam Cardiovascular Exam: REGULAR RHYTHM, +S1, +S2 - GI/Abdominal Exam GI & Abdominal Exam: Soft, Normal Bowel Sounds. absent: Guarding, Rigid, Tenderness, Organomegaly - Extremities Exam Extremities Exam: absent: Joint Swelling, Pedal Edema - Neurological Exam Neurological Exam: Alert, Awake, Oriented x3 - Psychiatric Exam Psychiatric exam: Normal Affect, Normal Mood - Skin Skin Exam: Dry, Intact, Normal Color, Warm Assessment and Plan - Assessment and Plan (Free Text) Assessment: Sekou Mitchell is a 52M hx of GERD and diverticulitis who presents with LLQ pain. Etiology is likely 2/2 Acute Sigmoid Diverticulitis complicated with sigmoid abcsess Acute Sigmoid Diverticulitis complicated with sigmoid abcsess Hx of Diverticulosis Hx of tubular adenoma GERD Plan: -continue antibiotics -consult general surgery -F/U Dr. Leos \ -liver lesion should be follow-out with outpt MRI -finish 10 harlan abx course -advance diet as tolerated -okay for discharge from GI standpoint will D/W Dr. Umanzor
--- NOTE | 2017-09-16 13:30 | PN ---
DATE: 09/16/2017 TIME: 9:43 a.m. SUBJECTIVE: This is a 52-year-old admitted with sigmoid diverticulitis. I have reviewed his CT scan dated 09/14/2017. This reveals a tiny air pocket with inflammatory change, contiguous with the sigmoid colon. It is not a drainable collection by CT criteria. I recommend that he is treated conservatively and a repeat scan obtained as clinically indicated. Breezy Knight MD MTDD
--- NOTE | 2017-09-17 07:07 | CP.PCM.DIS ---
Provider - Provider Date of Admission: 09/14/17 00:19 Attending physician: Naren Chauhan MD Primary care physician: Naren Chauhan MD Consults: GI:Deric IR: carmen Knight Time Spent in preparation of Discharge (in minutes): 70 Hospital Course - Lab Results Lab Results: Micro Results 09/15/17 13:40 Urine Urine Culture - Final No Growth (<1,000 CFU/ML) Most Recent Lab Values WBC 6.5 10^3/ul (4.5-11.0) 09/16/17 06:51 RBC 4.29 10^6/uL (3.5-6.1) 09/16/17 06:51 Hgb 13.2 g/dL (14.0-18.0) L 09/16/17 06:51 Hct 39.5 % (42.0-52.0) L 09/16/17 06:51 MCV 92.1 fl (80.0-105.0) 09/16/17 06:51 MCH 30.8 pg (25.0-35.0) 09/16/17 06:51 MCHC 33.4 g/dl (31.0-37.0) 09/16/17 06:51 RDW 12.3 % (11.5-14.5) 09/16/17 06:51 Plt Count 246 10^3/uL (120.0-450.0) 09/16/17 06:51 MPV 8.7 fl (7.0-11.0) 09/16/17 06:51 Gran % 48.7 % (50.0-68.0) L 09/14/17 00:28 Lymph % (Auto) 38.5 % (22.0-35.0) H 09/14/17 00:28 Addison % (Auto) 8.7 % (1.0-6.0) H 09/14/17 00:28 Eos % (Auto) 3.6 % (1.5-5.0) 09/14/17 00:28 Baso % (Auto) 0.5 % (0.0-3.0) 09/14/17 00:28 Gran # 3.80 (1.4-6.5) 09/14/17 00:28 Lymph # 3.0 (1.2-3.4) 09/14/17 00:28 Addison # 0.7 (0.1-0.6) H 09/14/17 00:28 Eos # 0.3 (0.0-0.7) 09/14/17 00:28 Baso # 0.04 K/mm3 (0.0-2.0) 09/14/17 00:28 PT 12.0 Seconds (9.9-11.8) H 09/14/17 00:28 INR 1.11 (0.93-1.08) H 09/14/17 00:28 APTT 29.4 Seconds (23.7-30.8) 09/14/17 00:28 Sodium 145 mmol/L (132-148) 09/16/17 06:47 Potassium 4.2 mmol/L (3.6-5.0) 09/16/17 06:47 Chloride 111 mmol/L (98-107) H 09/16/17 06:47 Carbon Dioxide 27 mmol/L (21-33) 09/16/17 06:47 Anion Gap 11 (10-20) 09/16/17 06:47 BUN 11 mg/dL (7-21) 09/16/17 06:47 Creatinine 1.1 mg/dL (0.8-1.5) 09/16/17 06:47 Est GFR ( Amer) > 60 09/16/17 06:47 Est GFR (Non-Af Amer) > 60 09/16/17 06:47 Random Glucose 94 mg/dL (70-110) 09/16/17 06:47 Calcium 8.6 mg/dL (8.4-10.5) 09/16/17 06:47 Phosphorus 4.3 mg/dL (2.5-4.5) 09/14/17 00:28 Magnesium 2.2 mg/dL (1.7-2.2) 09/14/17 00:28 Total Bilirubin 0.5 mg/dL (0.2-1.3) 09/16/17 06:47 AST 32 U/L (17-59) 09/16/17 06:47 ALT 52 U/L (7-56) 09/16/17 06:47 Alkaline Phosphatase 46 U/L (38-126) 09/16/17 06:47 Total Protein 5.8 g/dL (5.8-8.3) 09/16/17 06:47 Albumin 3.3 g/dL (3.0-4.8) 09/16/17 06:47 Globulin 2.5 gm/dL 09/16/17 06:47 Albumin/Globulin Ratio 1.3 (1.1-1.8) 09/16/17 06:47 Lipase 247 U/L (23-300) 09/14/17 00:28 Urine Color Yellow (YELLOW) 09/15/17 13:40 Urine Appearance Clear (CLEAR) 09/15/17 13:40 Urine pH 6.0 (4.7-8.0) 09/15/17 13:40 Ur Specific Kendrick <= 1.005 (1.005-1.035) 09/15/17 13:40 Urine Protein Negative mg/dL (<30 mg/dL) 09/15/17 13:40 Urine Glucose (UA) Negative mg/dL (NEGATIVE) 09/15/17 13:40 Urine Ketones Negative mg/dL (NEGATIVE) 09/15/17 13:40 Urine Blood Trace-intact (NEGATIVE) H 09/15/17 13:40 Urine Nitrate Negative (NEGATIVE) 09/15/17 13:40 Urine Bilirubin Negative (NEGATIVE) 09/15/17 13:40 Urine Urobilinogen 0.2 E.U./dL (<1 E.U./dL) 09/15/17 13:40 Ur Leukocyte Esterase Trace Maxx/uL (NEGATIVE) H 09/15/17 13:40 Urine RBC 5 - 10 /hpf (0-2) 09/15/17 13:40 Urine WBC 2 - 5 /hpf (0-6) 09/15/17 13:40 Ur Epithelial Cells 6 - 8 /hpf (0-5) 09/15/17 13:40 Stool Occult Blood Negative (NEGATIVE) 09/15/17 11:53 Hepatitis A IgM Ab Negative (NEGATIVE) 09/14/17 08:14 Hep Bs Antigen Negative (NEGATIVE) 09/14/17 08:14 Hep B Core IgM Ab Negative (NEGATIVE) 09/14/17 08:14 Hepatitis C Antibody Negative (NEGATIVE) 09/14/17 08:14 - Hospital Course Hospital Course: Patient is a 52 yo male with PMH of GERD and diverticulosis presented with LLQ abdominal pain. Patient stated that he experienced sharp, stabbing pain for about 1 week ago. At that time, patient went to [facility], in which a CT was obtained that showed a [id number] diverticular abscess. He was given IV antibiotics in the ED and then discharged with PO ciprofloxacin and metronidazole. Pt followed up with Dr. Leos as an outpatient last Saturday and was instructed to continue PO antibiotics and return to ED if his symptoms worsened. Patient stated that his symptoms did not resolve, so he came to [facility] for medical evaluation on 09/14/2017 for sharp pain in the LLQ with some loose stools that appeared dark. He admitted to the medical center[facility] but denied n/v, fever, hematochezia, CP, SOB, BRDAY, fatigue, recent weight loss, or dysuria. He stated that diet is high in protein, probiotics, and low in fiber. His last colonoscopy was 1 year ago, which showed polyps and diverticulosis. Patient was admitted and treated for acute diverticulitis. Patient was placed NPO and given IV fluids. CT of the abdomen and pelvis showed acute diverticulitis of the sigmoid colon with small diverticular abscess and liver lesions. Patient was started on IV antibiotics. GI and IR were consulted. Labs showed mildly elevated LFTs that have resolved. Patients diet was advanced to liquid diet and was tolerated. GI recommends continued antibiotics, outpatient colonoscopy in 6-8 weeks, and consider outpatient MRI for follow up of liver. Patient was discharged to home and told to continue and finish antibiotics course. Discharge Exam - Head Exam Head Exam: ATRAUMATIC, NORMOCEPHALIC - Eye Exam Eye Exam: EOMI, Normal appearance, PERRL - ENT Exam ENT Exam: Normal Exam - Respiratory Exam Respiratory Exam: Clear to PA & Lateral, NORMAL BREATHING PATTERN - Cardiovascular Exam Cardiovascular Exam: REGULAR RHYTHM - GI/Abdominal Exam GI & Abdominal Exam: Normal Bowel Sounds. absent: Guarding, Rebound, Rigid, Tenderness - Neurological Exam Neurological exam: Alert, Oriented x3 - Psychiatric Exam Psychiatric exam: Normal Affect Discharge Plan - Discharge Medications Prescriptions: Ciprofloxacin [Cipro] 500 mg PO BID #14 tab metroNIDAZOLE [Flagyl] 500 mg PO TID #21 tab - Follow Up Plan Condition: STABLE Disposition: HOME/ ROUTINE Instructions: Diverticulitis (DC), Pneumococcal Vaccine for Adults (DC), Influenza Vaccine (DC), Diverticulitis Diet (DC) Additional Instructions: 1. Pt is to fu with PMD within 1 week 2. Pt is to fu with GI within 1 week, and schedule a colonoscopy in 6-8 weeks 3. Pt is to complete abx course as prescribed 4. Pt is welcomed to return to [facility] ED if symptoms change or worsen Referrals: Naren Chauhan MD [Primary Care Provider] - Bayron Leos MD [Staff Provider] - Js Umanzor MD [Staff Provider] -
== END 2017-09-16 13:34 | disposition home or self-care (01) | DRG 392 ==
LOC: ED 23:44 → ERH 09-14 00:19 → 5RSO 09-14 02:22
PROVIDERS: ADMIT Internal Medicine; ATTEND Internal Medicine
DX: K57.20 Diverticulitis of large intestine with perforation and abscess without bleeding (principal); D12.6 Benign neoplasm of colon, unspecified; K21.9 Gastro-esophageal reflux disease without esophagitis; Z87.891 Personal history of nicotine dependence; K76.9 Liver disease, unspecified; R79.89 Other specified abnormal findings of blood chemistry

== ENCOUNTER 2017-11-08 06:14 | Day surgery (SDC) | payer BC ==
[2017-10-30 15:18] VITALS: BMI 30.7
[2017-11-08] MEDS ORDERED: Propofol 10 mg/ml Inj (20 ML) ONE ×3 (08:06→08:38)
[2017-11-08] MEDS ORDERED: Midazolam 2 MG/2 ML VIAL ONE (08:12)
[2017-11-08] MEDS ORDERED: Sodium Chloride 0.9% 1,000 ML IV SCH (09:00)
[2017-11-08 17:37] VITALS: BP 129/89; PULSE 84; RESP 18; TEMP 97.8; O2SAT 97
== END 2017-11-08 11:00 | disposition home or self-care (01) ==
LOC: ENDO 06:14
PROVIDERS: ATTEND Internal Medicine Gastroenterology
DX: K57.30 Diverticulosis of large intestine without perforation or abscess without bleeding (principal); D12.4 Benign neoplasm of descending colon; K63.5 Polyp of colon; K64.1 Second degree hemorrhoids; E78.5 Hyperlipidemia, unspecified; M54.12 Radiculopathy, cervical region
CPT/HCPCS: 45380; 45385; 88305; J2250; J2704; J7040 ×2

== ENCOUNTER 2018-06-09 10:41 | Emergency (ER) | payer BC ==
[2018-06-09 10:56] VITALS: TEMP 97.9; BMI 27.2
--- NOTE | 2018-06-09 11:27 | ED PDOC ---
Arrival/HPI - General Chief Complaint: Alcohol Ingestion Time Seen by Provider: 06/09/18 11:14 Historian: Patient - History of Present Illness Narrative History of Present Illness (Text): 06/09/18 11:23 53yr old male presents today brought in by police and ambulance after being found sleeping behind a restaurant. Patient states he was drinking alcohol this morning. He denies trauma. He denies headaches dizziness or weakness. Denies chest pain or shortness of breath. Patient denies fevers or chills. Denies depression or anxiety. Past Medical History - Provider Review Nursing Documentation Reviewed: Yes - Travel History Have you recently traveled outside [place] w/in the past 3 mons?: No - Infectious Disease Hx of Infectious Diseases: None - Cardiac Hx Pacemaker: No - Neurological Hx Paralysis: No - Hematological/Oncological Hx Blood Transfusions: No Hx Blood Transfusion Reaction: No - Musculoskeletal/Rheumatological Hx Musculoskeletal Disorders: Yes - Gastrointestinal Hx Diverticulitis: Yes - Psychiatric Hx Emotional Abuse: No Hx Physical Abuse: No Hx Substance Use: No - Anesthesia Hx Anesthesia Reactions: No Hx Malignant Hyperthermia: No - Suicidal Assessment Feels Threatened In Home Enviroment: No Family/Social History - Physician Review Nursing Documentation Reviewed: Yes Family/Social History: Unknown Family HX Smoking Status: Unknown If Ever Smoked Hx Alcohol Use: Yes (A "FEW" BEERS EVERY WEEK) Hx Substance Use: No Allergies/Home Meds Allergies/Adverse Reactions: Allergies No Known Allergies Allergy (Verified 07/05/16 08:15) Home Medications: Home Meds Medication Instructions Recorded Confirmed Pantoprazole Sodium [Protonix] 40 mg PO DAILY 10/30/17 11/08/17 Multivitamin [Honey Bears] 1 each PO DAILY 11/08/17 11/08/17 Review of Systems - Review of Systems Constitutional: absent: Fatigue, Fevers Respiratory: absent: SOB, Cough Cardiovascular: absent: Chest Pain, Palpitations Gastrointestinal: absent: Abdominal Pain, Nausea, Vomiting Genitourinary Male: absent: Dysuria Musculoskeletal: absent: Arthralgias Skin: absent: Rash, Pruritis, Laceration Neurological: absent: Headache Psychiatric: absent: Anxiety, Depression, Suicidal Ideation Physical Exam Vital Signs Reviewed: Yes Vital Signs Temp Pulse Resp BP Pulse Ox 06/09/18 12:42 97 H 19 153/81 H 98 06/09/18 10:42 97.9 F 99 H 18 157/95 H 97 Temperature: Afebrile Blood Pressure: Hypertensive Pulse: Regular Respiratory Rate: Normal Appearance: Positive for: Well-Appearing, Non-Toxic, Comfortable Pain Distress: None Mental Status: Positive for: Alert and Oriented X 3 - Systems Exam Head: Present: Atraumatic Mouth: Present: Moist Mucous Membranes Neck: Present: Normal Range of Motion Respiratory/Chest: Present: Clear to Auscultation, Good Air Exchange. No: Respiratory Distress, Accessory Muscle Use Cardiovascular: Present: Regular Rate and Rhythm, Normal S1, S2. No: Murmurs Abdomen: Present: Other (no ecchymosis). No: Tenderness, Distention, Rebound, Guarding Back: Present: Normal Inspection. No: Midline Tenderness, Paraspinal Tenderness Upper Extremity: Present: Normal ROM. No: Tenderness Lower Extremity: Present: Normal Inspection, Normal ROM. No: Tenderness Neurological: Present: GCS=15, Speech Normal Skin: Present: Warm, Dry, Normal Color. No: Rashes Psychiatric: Present: Alert, Oriented x 3 Medical Decision Making ED Course and Treatment: 06/09/18 12:06 53-year-old male presents brought in by police for alcohol intoxication Patient alert and oriented in no distress. CAT scan of the head:FINDINGS: HEMORRHAGE: No intracranial hemorrhage. BRAIN: No mass effect or edema. PERIVENTRICULAR WHITE MATTER ISCHEMIC DISEASE. VENTRICLES: Unremarkable. No hydrocephalus. CALVARIUM: Unremarkable. PARANASAL SINUSES: Unremarkable as visualized. No significant inflammatory changes. MASTOID AIR CELLS: Unremarkable as visualized. No inflammatory changes. OTHER FINDINGS: None. IMPRESSION: NO INTRACRANIAL HEMORRHAGE. Patient reassessment: Patient nontoxic well-appearing no distress stable vital signs. fingerstick 60; pt states he didnt eat since last night. pt given tray of food, orange juice and crackers. 06/09/18 14:30 pt reassessment: Patient is nontoxic well-appearing in no distress with stable vital signs. Patient alert and oriented. Ambulating with steady gait. Clinically sober. Patient was advised to follow-up with primary care physician within the next 2 days and return if symptoms worsen persist or if new concerning symptoms develop Patient verbalizes understanding of discharge instructions and need for immediate followup. all aspects of this case were discussed the attending of record. Impression: Alcohol intoxication Increase fluids follow up with the primary care physician within the next 2 days return if symptoms worsen, persist or if new symptoms develop. Reassessment Condition: Re-examined, Improved - Lab Interpretations Lab Results: Lab Results 06/09/18 13:22: POC Glucose (mg/dL) 60 L - RAD Interpretation Radiology Orders: 06/09/18 11:14 HEAD W/O CONTRAST [CT] Stat Disposition/Present on Arrival - Present on Arrival Any Indicators Present on Arrival: No History of DVT/PE: No History of Uncontrolled Diabetes: No Urinary Catheter: No History of Decub. Ulcer: No History Surgical Site Infection Following: None - Disposition Have Diagnosis and Disposition been Completed?: Yes Diagnosis: Alcohol abuse Disposition: HOME/ ROUTINE Disposition Time: 14:30 Patient Plan: Discharge Condition: GOOD Discharge Instructions (ExitCare): Alcohol Abuse and Alcoholism (DC) Additional Instructions: Increase fluids follow up with the primary care physician within the next 2 days return if symptoms worsen, persist or if new symptoms develop. Referrals: Supa Moran MD [Staff Provider] - Follow up with primary Forms: [employer] ([place]vor[place])
--- NOTE | 2018-06-09 11:49 | CT ---
PROCEDURE: CT HEAD WITHOUT CONTRAST. HISTORY: etoh COMPARISON: None available. TECHNIQUE: Axial computed tomography images were obtained through the head/brain without intravenous contrast. Radiation dose: Total exam DLP = mGy-cm. This CT exam was performed using one or more of the following dose reduction techniques: Automated exposure control, adjustment of the mA and/or kV according to patient size, and/or use of iterative reconstruction technique. FINDINGS: HEMORRHAGE: No intracranial hemorrhage. BRAIN: No mass effect or edema. PERIVENTRICULAR WHITE MATTER ISCHEMIC DISEASE. VENTRICLES: Unremarkable. No hydrocephalus. CALVARIUM: Unremarkable. PARANASAL SINUSES: Unremarkable as visualized. No significant inflammatory changes. MASTOID AIR CELLS: Unremarkable as visualized. No inflammatory changes. OTHER FINDINGS: None. IMPRESSION: NO INTRACRANIAL HEMORRHAGE.
[2018-06-09 14:42] VITALS: BP 150/78; PULSE 92; RESP 18; O2SAT 99
== END 2018-06-09 14:40 | disposition home or self-care (01) ==
LOC: ED 10:41
DX: F10.129 Alcohol abuse with intoxication, unspecified (principal)

== ENCOUNTER 2018-06-27 23:45 | Emergency (ER) | payer BC, MEDICAID, OTHER ==
[2018-06-27 23:46] VITALS: BMI 30.7
[2018-06-27 23:55] VITALS: TEMP 98.2
--- NOTE | 2018-06-28 00:13 | ED PDOC ---
Arrival/HPI - General Chief Complaint: Medical Clearance Time Seen by Provider: 06/28/18 00:09 Historian: Patient - History of Present Illness Narrative History of Present Illness (Text): 06/28/18 00:08 Sekou Mitchell is a 53 year old male, whose past medical history includes acid reflux, who presents to the emergency department complaining of yellowing of eyes. Patient reports daily alcohol consumption for the past month. Patient notes hiccups, mild abdominal pain, coughing and dark urine. Patient denies any fever, chills, change in stool, chest pain, shortness of breath, nausea, diarrhea, urinary symptoms, back pain, neck pain, headache, dizziness, or any other complaints. PMD: Dr. Chauhan Time/Duration: Prior to Arrival Symptom Onset: Gradual Symptom Course: Unchanged Activities at Onset: Light Past Medical History - Provider Review Nursing Documentation Reviewed: Yes - Travel History Have you recently traveled outside [place] w/in the past 3 mons?: No - Infectious Disease Hx of Infectious Diseases: None - Cardiac Hx Pacemaker: No - Neurological Hx Paralysis: No - Hematological/Oncological Hx Blood Transfusions: No Hx Blood Transfusion Reaction: No - Musculoskeletal/Rheumatological Hx Musculoskeletal Disorders: Yes - Gastrointestinal Hx Diverticulitis: Yes - Psychiatric Hx Emotional Abuse: No Hx Physical Abuse: No Hx Substance Use: No - Anesthesia Hx Anesthesia Reactions: No Hx Malignant Hyperthermia: No - Suicidal Assessment Feels Threatened In Home Enviroment: No Family/Social History - Physician Review Nursing Documentation Reviewed: Yes Family/Social History: No Known Family HX Smoking Status: Never Smoked Hx Alcohol Use: Yes (A "FEW" BEERS EVERY WEEK) Frequency of alcohol use: Daily Hx Substance Use: No Allergies/Home Meds Allergies/Adverse Reactions: Allergies No Known Allergies Allergy (Verified 07/05/16 08:15) Home Medications: Home Meds Medication Instructions Recorded Confirmed Pantoprazole Sodium [Protonix] 40 mg PO DAILY 10/30/17 11/08/17 Multivitamin [Honey Bears] 1 each PO DAILY 11/08/17 11/08/17 Review of Systems - Physician Review All systems were reviewed & negative as marked: Yes - Review of Systems Cardiovascular: absent: Chest Pain Neurological: absent: Headache Physical Exam - Physical Exam Narrative Physical Exam (Text): 06/28/18 00:08 Constitutional: No acute distress. Head: Normocephalic. Atraumatic. Eyes: PERRL. Scleral icterus. ENT: Moist mucous membranes. Neck: Supple. Cardiovascular: Regular rate. Chest: No tenderness. Respiratory: Clear to auscultation bilaterally. GI: Soft. Nontender. Nondistended. Back: No CVA tenderness. Musculoskeletal: No tenderness or swelling of extremities. Skin: No rash. Neurologic: Alert, no focal deficit. Vital Signs Reviewed: Yes Vital Signs Temp Pulse Resp BP Pulse Ox 06/28/18 01:08 90 18 135/82 98 06/27/18 23:52 98.2 F 102 H 18 151/77 H 98 Temperature: Afebrile Blood Pressure: Normal Pulse: Tachycardic Respiratory Rate: Normal Appearance: Positive for: Well-Appearing, Non-Toxic Mental Status: Positive for: Alert and Oriented X 3 Medical Decision Making ED Course and Treatment: 06/28/18 00:08 Impression: Sekou Mitchell is a 53 year old male who presents to the emergency department complaining of yellowing of eyes. Plan: -- Labs -- IV fluids -- Multivitamin -- Vitamin B1 -- Folic acid -- Urinalysis -- Reassess and disposition Prior Visits: Notes and results from previous visits were reviewed. Patient was last seen in the emergency department on 06/09/18 and was discharged home and advised to follow up with primary care physician within the next 2 days if symptoms worsened, persisted, or if new symptoms developed. Progress Notes: Patient with markedly elevated bilirubin with transaminitis and elevated lipase. Dr. Cottrell senior fund accountant evaluated patient at bedside, recommends admission to [facility] at this time. - Lab Interpretations Lab Results: 06/28/18 00:27 06/28/18 00:27 Lab Results 06/28/18 01:46: Urine Color Dark yellow, Urine Appearance Clear, Urine pH 6.5, Ur Specific Tyler <= 1.005, Urine Protein Trace H, Urine Glucose (UA) 100 H, Urine Ketones Trace H, Urine Blood Trace-intact H, Urine Nitrate Negative, Urine Bilirubin Large H, Urine Urobilinogen 4.0 H, Ur Leukocyte Esterase Negative, Urine RBC Pending, Urine WBC Pending 06/28/18 00:27: Haptoglobin Pending, Alcohol, Quantitative < 10 06/28/18 00:27: Ammonia 33 06/28/18 00:27: Sodium 135, Potassium 4.5, Chloride 92 L, Carbon Dioxide 29, Anion Gap 19, BUN 26 H, Creatinine 1.6 H, Est GFR ( Amer) 55, Est GFR ( Non-Af Amer) 45, Random Glucose 95, Calcium 8.0 L, Total Bilirubin 20.7 H*, Direct Bilirubin 17.6 H, GGT 876 H, AST 459 H D, ALT 331 H, Alkaline Phosphatase 83, Lactate Dehydrogenase 1612 H, Total Protein 6.9, Albumin 3.7, Globulin 3.2, Albumin/Globulin Ratio 1.1, Lipase 3536 H 06/28/18 00:27: PT 13.0 H, INR 1.14 H, APTT 26.3 06/28/18 00:27: WBC 9.9 D, RBC 5.07, Hgb 14.7, Hct 40.5 L, MCV 79.9 L D, MCH 29.0, MCHC 36.3, RDW 20.7 H, Plt Count 212, MPV 9.9, Gran % 80.4 H, Lymph % ( Auto) 9.7 L, [place] % (Auto) 9.3 H, Eos % (Auto) 0.3 L, Baso % (Auto) 0.3, Gran # 7.91 H, Lymph # (Auto) 1.0 L, [place] # (Auto) 0.9 H, Eos # (Auto) 0.0, Baso # ( Auto) 0.03, Retic Count 1.53 H - RAD Interpretation Radiology Orders: 06/28/18 01:13 ABD & PELVIS W/O PO OR IV CONT [CT] Stat - Medication Orders Current Medication Orders: Discontinued Medications Multivitamins/Vitamin C 10 ml/Thiamine HCl 100 mg/ Folic Acid 1 mg/ Dextrose 1, 011.2 mls @ 1,000 mls/hr IV .Q1H1M ONE Stop: 06/28/18 01:14 Last Admin: 06/28/18 00:39 Dose: 1,000 mls/hr eMAR Start Stop Document 06/28/18 00:39 OCS (Rec: 06/28/18 00:39 OCS [id number]) Intravenous Solution Start Date 06/28/18 Start Time 00:39 End Date 06/28/18 End time 01:40 Total Infusion Time 61 - Scribe Statement The provider has reviewed the documentation as recorded by the Scribe Thao Rodriguezjh All medical record entries made by the Alka were at my direction and personally dictated by me. I have reviewed the chart and agree that the record accurately reflects my personal performance of the history, physical exam, medical decision making, and the department course for this patient. I have also personally directed, reviewed, and agree with the discharge instructions and disposition. Disposition/Present on Arrival - Present on Arrival Any Indicators Present on Arrival: No History of DVT/PE: No History of Uncontrolled Diabetes: No Urinary Catheter: No History of Decub. Ulcer: No History Surgical Site Infection Following: None - Disposition Have Diagnosis and Disposition been Completed?: Yes Diagnosis: Hyperbilirubinemia, Pancreatitis Disposition: HOSPITALIZED Disposition Time: 02:00 Patient Plan: Admission, Telemetry Condition: GUARDED Forms: [employer] ([place])
[2018-06-28] MEDS ORDERED: Multivitamin (MVI) 10 ML, Thiamine 100 MG, Folic Acid 1 MG in Dextrose 5% In Water 1,00... IV ONE (00:14)
[2018-06-28 00:47] LABS: BASO # 0.03 K/mm3 (0.0-2.0); BASO % 0.3 % (0.0-3.0); EOS % 0.3 % (1.5-5.0); GRAN # 7.91 (1.4-6.5); GRAN % 80.4 % (50.0-68.0); HEMOGLOBIN 14.7 g/dL (14.0-18.0); LYMPH % 9.7 % (22.0-35.0); MEAN CELL VOLUME 79.9 fl (80.0-105.0); MEAN CORPUSCULAR HGB CONC 36.3 g/dl (31.0-37.0); MEAN PLATELET VOLUME 9.9 fl (7.0-11.0); MONO # 0.9 (0.1-0.6); MONO % 9.3 % (1.0-6.0); PLATELET COUNT 212 10^3/uL (120.0-450.0); RBC 5.07 10^6/uL (3.5-6.1); RED CELL DISTRIBUTION WIDTH 20.7 % (11.5-14.5); WHITE BLOOD COUNT 9.9 10^3/ul (4.5-11.0)
[2018-06-28 00:57] LABS: INR 1.14 (0.93-1.08); PARTIAL THROMBOPLASTIN TIME 26.3 Seconds (25.1-36.5)
[2018-06-28 01:00] LABS: BILIRUBIN,DIRECT 17.6 mg/dL (0.0-0.4)
[2018-06-28 01:02] LABS: ALB/GLOB RATIO 1.1 (1.1-1.8); ALBUMIN 3.7 g/dL (3.0-4.8)
[2018-06-28 01:59] LABS: PH,URINE 6.5 (4.7-8.0); URINE BILIRUBIN LARGE (NEGATIVE); URINE BLOOD TRACE-INTACT (NEGATIVE); URINE GLUCOSE (UA) 100 mg/dL (NEGATIVE); URINE LEUKOCYTE ESTERASE NEGATIVE Leu/uL (NEGATIVE); URINE PROTEIN TRACE mg/dL (<30 mg/dL)
[2018-06-28 02:08] LABS: URINE APPEARANCE CLEAR (CLEAR); URINE COLOR DARK YELLOW (YELLOW)
[2018-06-28 02:38] LABS: URINE BACTERIA MOD (NEG)
[2018-06-28 02:42] LABS: BARBITURATES, UR NEGATIVE (NEGATIVE); BENZODIAZEPINES, UR NEGATIVE (NEGATIVE); OPIATES, UR NEGATIVE (NEGATIVE); PHENCYCLIDINE, UR NEGATIVE (NEGATIVE)
[2018-06-28] MEDS ORDERED: Pantoprazole 40 mg EC Tab PO STA (03:02)
[2018-06-28 03:12] VITALS: BP 139/85; PULSE 85; RESP 19; O2SAT 100
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
--- NOTE | 2018-06-28 10:40 | CT ---
Date of service: 06/28/2018 PROCEDURE: CT Abdomen and Pelvis without intravenous contrast HISTORY: Hyperbilirubinemia, transaminitis. Pancreatitis suspected. COMPARISON: 09/14/2017. TECHNIQUE: Unenhanced study. Neither oral nor intravenous contrast administered. Sensitivity and specificity for acute inflammatory processes limited by the absence of oral and intravenous contrast. Radiation dose: Total exam DLP = 589.84 mGy-cm. This CT exam was performed using one or more of the following dose reduction techniques: Automated exposure control, adjustment of the mA and/or kV according to patient size, and/or use of iterative reconstruction technique. FINDINGS: LOWER THORAX: Unremarkable. LIVER: Hepatic steatosis. No focal masses. No intrahepatic bile duct dilatation or perihepatic ascites. GALLBLADDER AND BILE DUCTS: Unremarkable. PANCREAS: Unremarkable. No gross lesion or ductal dilatation. SPLEEN: Unremarkable. ADRENALS: Unremarkable. No mass. KIDNEYS AND URETERS: Unremarkable. No hydronephrosis. No solid mass. VASCULATURE: Unremarkable. No aortic aneurysm. BOWEL: Diverticulosis without an acute inflammatory component or other associated pathologic process. Findings of acute diverticulitis apparent on the prior study have resolved. APPENDIX: Unremarkable. Normal appendix. PERITONEUM: Unremarkable. No free fluid. No free air. LYMPH NODES: Unremarkable. No enlarged lymph nodes. BLADDER: Unremarkable. REPRODUCTIVE: Unremarkable. BONES: No acute fracture. OTHER FINDINGS: Soft tissue mass interposed between left gluteal muscles in the skin surface 2 x 2.6 cm. This represents a new finding compared to the prior study. Significance/etiology unknown. IMPRESSION: No significant or acute findings to account for/ related to the clinical presentation. Additional benign and/or incidental findings described above. Limitations of the current examination: Absence of oral and intravenous contrast. Concordant results (preliminary interpretation) provided by [employer] [facility]. Procedure Completed: 01:40. Preliminary ([facility]Rad) Report: Dictated and Authenticated: 05:26. Final Interpretation: 10:38. June 28, 2018.
== END 2018-06-28 03:10 | disposition left against medical advice (07) ==
LOC: ED 23:45
DX: E80.6 Other disorders of bilirubin metabolism (principal); K85.90 Acute pancreatitis without necrosis or infection, unspecified; K21.9 Gastro-esophageal reflux disease without esophagitis
CPT/HCPCS: 74176; 80053; 81001; 82140; 82248; 82977; 83010; 83615; 83690; 85025; 85044; 85610; 85730; 87086; 96360; 99283; G0480; J3411; J7070

== ENCOUNTER 2018-06-28 20:07 | Inpatient (IN) | payer MEDICAID, OTHER ==
[2018-06-28 20:54] VITALS: BMI 27.1
--- NOTE | 2018-06-28 21:10 | ED PDOC ---
Arrival/HPI - General Chief Complaint: Eye Problem Time Seen by Provider: 06/28/18 20:09 Historian: Patient - History of Present Illness Narrative History of Present Illness (Text): 06/28/18 21:09 Sekou Mitchell is a 53 year old male, whose past medical history includes GERD, diverticulitis, and alcohol abuse, who presents to the emergency department complaining of yellowing to bilateral eyes. Patient was seen in the emergency department yesterday for similar complaints and had a full workup. Patient with noted hyperbilirubinemia and was advised admission to the hospital for further evaluation but left against medical advice. Patient return tonight for admission to the hospital as his symptoms have not improved. Patient denies any fever, chills, chest pain, vomiting, diarrhea, dizziness, or any other complaints. GI: Dr. Leos Symptom Onset: Gradual Symptom Course: Unchanged Activities at Onset: Light Context: Home Past Medical History - Provider Review Nursing Documentation Reviewed: Yes - Infectious Disease Hx of Infectious Diseases: None - Cardiac Hx Cardiac Disorders: No - Pulmonary Hx Respiratory Disorders: No - Neurological Hx Neurological Disorder: No - HEENT Hx HEENT Disorder: No - Renal Hx Renal Disorder: No - Endocrine/Metabolic Hx Endocrine Disorders: No - Hematological/Oncological Hx Blood Disorders: No - Integumentary Hx Dermatological Disorder: No - Musculoskeletal/Rheumatological Hx Musculoskeletal Disorders: Yes - Gastrointestinal Hx Gastrointestinal Disorders: Yes Hx Diverticulitis: Yes - Genitourinary/Gynecological Hx Genitourinary Disorders: No - Psychiatric Hx Psychophysiologic Disorder: No Hx Substance Use: No - Anesthesia Hx Anesthesia Reactions: No Hx Malignant Hyperthermia: No - Suicidal Assessment Feels Threatened In Home Enviroment: No Family/Social History - Physician Review Nursing Documentation Reviewed: Yes Family/Social History: Unknown Family HX Smoking Status: Never Smoked Hx Alcohol Use: Yes (A "FEW" BEERS EVERY WEEK) Hx Substance Use: No Allergies/Home Meds Allergies/Adverse Reactions: Allergies No Known Allergies Allergy (Verified 07/05/16 08:15) Home Medications: Home Meds Medication Instructions Recorded Confirmed Pantoprazole Sodium [Protonix] 40 mg PO DAILY 10/30/17 06/28/18 Review of Systems - Physician Review All systems were reviewed & negative as marked: Yes - Review of Systems Constitutional: Normal. absent: Fevers Eyes: Other (+yellow eyes) ENT: Normal Respiratory: Normal. absent: SOB, Cough Cardiovascular: Normal. absent: Chest Pain Gastrointestinal: absent: Diarrhea, Nausea, Vomiting Genitourinary Male: absent: Dysuria, Frequency, Hematuria, Urinary Output Changes Musculoskeletal: Normal. absent: Back Pain, Neck Pain Skin: Normal. absent: Rash Neurological: Normal. absent: Headache, Dizziness Endocrine: Normal Hemo/Lymphatic: Normal Psychiatric: Normal Physical Exam Vital Signs Reviewed: Yes Vital Signs Temp Pulse Resp BP Pulse Ox 06/28/18 20:54 98.0 F 96 H 18 120/79 99 Temperature: Afebrile Blood Pressure: Normal Pulse: Regular Respiratory Rate: Normal Appearance: Positive for: Well-Appearing, Non-Toxic, Comfortable Pain Distress: None Mental Status: Positive for: Alert and Oriented X 3 - Systems Exam Head: Present: Atraumatic, Normocephalic Pupils: Present: PERRL Extroacular Muscles: Present: EOMI Conjunctiva: Present: Icteric (Scleral icterus) Mouth: Present: Moist Mucous Membranes Neck: Present: Normal Range of Motion. No: Meningeal Signs, MIDLINE TENDERNESS , Paraspinal Tenderness Respiratory/Chest: Present: Clear to Auscultation, Good Air Exchange. No: Respiratory Distress, Accessory Muscle Use Cardiovascular: Present: Regular Rate and Rhythm, Normal S1, S2. No: Murmurs Abdomen: No: Tenderness, Distention, Peritoneal Signs Back: Present: Normal Inspection Upper Extremity: Present: Normal Inspection. No: Cyanosis, Edema Lower Extremity: Present: Normal Inspection. No: Edema Neurological: Present: GCS=15, CN II-XII Intact, Speech Normal Skin: Present: Warm, Dry. No: Rashes Psychiatric: Present: Alert, Oriented x 3, Normal Insight, Normal Concentration Medical Decision Making ED Course and Treatment: 06/28/18 21:09 Impression: 53 year old male presents with yellowing of bilateral eyes. Plan: -- Labs, lipase, alcohol level -- UA -- Banana bag -- Reassess and disposition Prior Visits: Notes and results from previous visits were reviewed. On 06/27/18, pt was seen in the emergency department for yellowing of eyes and tremors. Pt with hyperbilirubinemia and was advised admission to hospital but left AMA. CT Abdomen and Pelvis performed yesterday showed: 1. Hepatic steatosis. 2. The gallbladder is unremarkable. No biliary ductal dilatation Progress Notes: 06/28/18 21:[address] Cottrell, who is aware and agrees with plan. Accepts pt in to hospitalist service. Pt will be admitted to [facility] for hyperbilirubinemia and pancreatitis. vice president of procurement notified. - Lab Interpretations Lab Results: 06/28/18 22:01 Lab Results 06/28/18 22:01: Alcohol, Quantitative < 10 06/28/18 22:01: Sodium Pending, Potassium Pending, Chloride Pending, Carbon Dioxide Pending, Anion Gap Pending, BUN Pending, Creatinine Pending, Est GFR ( Amer) Pending, Est GFR (Non-Af Amer) Pending, Random Glucose 96, Calcium Pending, Total Bilirubin Pending, AST Pending, ALT Pending, Alkaline Phosphatase Pending, Total Protein Pending, Albumin Pending, Globulin Pending, Albumin/Globulin Ratio Pending, Lipase Pending - Medication Orders Current Medication Orders: Folic Acid 1 mg/ Thiamine HCl 100 mg/ Multivitamins/Vitamin C 10 ml/ Dextrose 1 ,011.2 mls @ 100 mls/hr IV .[id number] ANUSHA - Scribe Statement The provider has reviewed the documentation as recorded by the Alka Brian Provider Scribe Attestation: All medical record entries made by the Scribe were at my direction and personally dictated by me. I have reviewed the chart and agree that the record accurately reflects my personal performance of the history, physical exam, medical decision making, and the department course for this patient. I have also personally directed, reviewed, and agree with the discharge instructions and disposition. Disposition/Present on Arrival - Present on Arrival Any Indicators Present on Arrival: No History of DVT/PE: No History of Uncontrolled Diabetes: No Urinary Catheter: No History of Decub. Ulcer: No History Surgical Site Infection Following: None - Disposition Have Diagnosis and Disposition been Completed?: Yes Diagnosis: Hyperbilirubinemia, Pancreatitis Disposition: HOSPITALIZED Disposition Time: 22:41 Patient Plan: Admission Patient Problems: Current Active Problems Problem Status Onset Hyperbilirubinemia Acute Pancreatitis Acute Condition: STABLE Referrals: Naren Chauhan MD [Primary Care Provider] - Follow up with primary Forms: [facility] [employer] (Divehi)
[2018-06-28] MEDS ORDERED: Folic Acid 1 MG, Thiamine 100 MG, Multivitamin (MVI) 10 ML in Dextrose 5% In Water 1,00... IV SCH (21:15)
[2018-06-28 22:43] LABS: HEMOGLOBIN 13.3 g/dL (14.0-18.0); MEAN CELL VOLUME 82.5 fl (80.0-105.0); MEAN CORPUSCULAR HGB CONC 33.9 g/dl (31.0-37.0); MEAN PLATELET VOLUME 9.6 fl (7.0-11.0); RBC 4.75 10^6/uL (3.5-6.1); RED CELL DISTRIBUTION WIDTH 21.2 % (11.5-14.5); WHITE BLOOD COUNT 8.3 10^3/ul (4.5-11.0)
[2018-06-28 22:46] LABS: URINE BILIRUBIN LARGE (NEGATIVE); URINE BLOOD NEGATIVE (NEGATIVE); URINE GLUCOSE (UA) 100 mg/dL (NEGATIVE); URINE LEUKOCYTE ESTERASE TRACE Leu/uL (NEGATIVE); URINE PROTEIN 30 mg/dL (<30 mg/dL); URINE UROBILINOGEN >=8.0 E.U./dL (<1 E.U./dL)
[2018-06-28 22:47] LABS: URINE APPEARANCE CLEAR (CLEAR); URINE COLOR ORANGE (YELLOW)
[2018-06-28 22:53] LABS: ALB/GLOB RATIO 1.1 (1.1-1.8); ALT/SGPT 345 U/L (7-56); AST/SGOT 331 U/L (17-59); BLOOD UREA NITROGEN 21 mg/dL (7-21); CALCIUM 8.4 mg/dL (8.4-10.5); GFR AFRICAN-AMERICAN > 60; GFR NON-AFRICAN AMERICAN 57
[2018-06-28 22:54] LABS: ALBUMIN 3.2 g/dL (3.0-4.8)
[2018-06-28 23:03] LABS: URINE AMORPHOUS SEDIMENT SMALL; URINE BACTERIA TRACE (NEG); URINE EPITHELIAL CELLS 0 - 2 /hpf (0-5); URINE RBC 0 - 2 /hpf (0-2); URINE WBC 0 - 2 /hpf (0-6)
[2018-06-28 23:07] LABS: INR 1.09 (0.93-1.08); PARTIAL THROMBOPLASTIN TIME 25.6 Seconds (25.1-36.5); PROTHROMBIN TIME 12.5 SECONDS (9.4-12.5)
[2018-06-28 23:14] LABS: LIPASE 3890 U/L (23-300)
[2018-06-29 02:10] LABS: AMYLASE 264 U/L (35-125)
--- NOTE | 2018-06-29 02:50 | CP.PCM.HP ---
<Umberto Polanco - Last Filed: 06/29/18 06:07> History of Present Illness - History of Present Illness History of Present Illness: Umberto Polanco PGY-1, Internal Medicine Resident, History and Physical for Dr Cottrell. HPI: Pt is a 53 year old male with a PMH of GERD, diverticulitis, and alcohol abuse, presents to the emergency department, after leaving AMA yesterday for similar complaints, complaining of yellowing to bilateral eyes. Patient with noted hyperbilirubinemia and was advised admission to the hospital for further evaluation but left against medical advice. Pt returns to the hospital because his symptoms did not improve overnight and he got more and more worried. Patient denies any fever, chills, chest pain, vomiting, diarrhea, dizziness, or any other complaints. Pt reports he is a "binge alcoholic" and has recently been drinking excessively. He reports he has had a tremor which "comes and goes ". He has had a tremor like this in the past, he states that is can last for 2- 3 days and go away. He denies every having a seizure "that he knows of". Pt also notes that his hands have been itchy. 12 Point ROS obtained and pertinent pos/neg added to HPI. PMH: GERD, diverticulitis, and alcohol abuse PSH: denies FH: Mother: 83, dialysis. Father: 76, lung CA. SH: Tobacco quit 6ya, smoked 2ppd for approx 35 years, occasional marijuana, admits to frequent binge drinking Home meds: protonix Allergies: NKDA PMD: Dr Chauhan Present on Admission - Present on Admission Any Indicators Present on Admission: No Review of Systems - Review of Systems Review of Systems: 12 point review of systems obtained and added to HPI where appropriate Past Patient History - Infectious Disease Hx of Infectious Diseases: None - Past Social History Smoking Status: Never Smoked - CARDIAC Hx Cardiac Disorders: No - PULMONARY Hx Respiratory Disorders: No - NEUROLOGICAL Hx Neurological Disorder: No - HEENT Hx HEENT Problems: No - RENAL Hx Chronic Kidney Disease: No - ENDOCRINE/METABOLIC Hx Endocrine Disorders: No - HEMATOLOGICAL/ONCOLOGICAL Hx Blood Disorders: No - INTEGUMENTARY Hx Dermatological Problems: No - MUSCULOSKELETAL/RHEUMATOLOGICAL Hx Musculoskeletal Disorders: Yes - GASTROINTESTINAL Hx Gastrointestinal Disorders: Yes Hx Diverticulitis: Yes - GENITOURINARY/GYNECOLOGICAL Hx Genitourinary Disorders: No - PSYCHIATRIC Hx Psychophysiologic Disorder: No Hx Substance Use: No - SURGICAL HISTORY Hx Surgeries: Yes - ANESTHESIA Hx Anesthesia Reactions: No Hx Malignant Hyperthermia: No Meds Allergies/Adverse Reactions: Allergies Allergy/AdvReac Type Severity Reaction Status Date / Time No Known Allergies Allergy Verified 07/05/16 08:15 Physical Exam - Constitutional Appears: Toxic, No Acute Distress - Head Exam Head Exam: ATRAUMATIC, NORMAL INSPECTION, NORMOCEPHALIC - Eye Exam Eye Exam: EOMI, Scleral icterus. absent: Periorbital swelling - ENT Exam ENT Exam: Mucous Membranes Moist - Neck Exam Neck exam: Positive for: Normal Inspection Additional comments: no JVD noted no exam - Respiratory Exam Respiratory Exam: Clear to Auscultation Bilateral, NORMAL BREATHING PATTERN. absent: Accessory Muscle Use, Decreased Breath Sounds, Respiratory Distress - Cardiovascular Exam Cardiovascular Exam: REGULAR RHYTHM, RRR, +S1, +S2. absent: Diastolic murmur, JVD, Rubs, +S4, Systolic Murmur - GI/Abdominal Exam GI & Abdominal Exam: Normal Bowel Sounds, Soft. absent: Distended, Firm, Guarding, Organomegaly, Rebound, Rigid, Tenderness Additional comments: no fluid wave or ascities noted on exam - Extremities Exam Extremities exam: Positive for: full ROM, normal inspection. Negative for: calf tenderness, pedal edema, tenderness - Neurological Exam Additional comments: no astrixis noted on exam - Psychiatric Exam Psychiatric exam: Normal Affect, Normal Mood - Skin Skin Exam: Normal Color, Warm Results - Vital Signs Recent Vital Signs: Last Vital Signs Temp 98.2 F 06/29/18 00:05 Pulse 90 06/29/18 00:05 Resp 18 06/29/18 00:05 BP 125/82 06/29/18 00:05 Pulse Ox 99 06/29/18 00:05 - Labs Result Diagrams: 06/28/18 22:01 06/28/18 22:01 Labs: Laboratory Results - last 24 hr 06/29/18 01:40 Triglycerides 229 H Amylase 264 H Assessment & Plan - Assessment and Plan (Free Text) Plan: Pt is a 53 year old male with a PMH of GERD, diverticulitis, and alcohol abuse, presents to the emergency department, after leaving AMA yesterday for similar complaints, complaining of yellowing to bilateral eyes. Alcoholic liver disease: -AST:331, ALT:345, Tbili:11.6; Direct bili:17.6 -Scleral icterus and jaundice present on exam; -NPO -CT non con: AP shows no acute/significant findings -UA: protein 30, Glucose 100, Ketones trace, Bilirubin Large, LE large. -RUQ US: ordered awaiting results -GI Consulted, Dr Leos EtOH Abuse/ Withdrawal -ordered [facility] protocol -Seizure precautions -Ativan 2mg Q6H PRN -Ordered Folic acid and B12 PO daily -UDS: negative Elevated Lipase; -No GI complaints assoc w/ pancreatitis at this time; no N/V -CT: AP shows no acute pathology -EtOH Cessation suggested and discussed NABILA: -Cr 1.3; baseline Cr 1.1-1.2 -NS 150ml/hr -Reassess BUN/Cr in AM Hx GERD -Hb 13.3; VSS; hemodynamically stable -No active bleeding appreciated -NPO -Protonix 40 QD -GI consulted Pt seen, examined, and assessment/ plan discussed with Dr Cottrell. Umberto Polanco PGY-1 <Leo Cottrell - Last Filed: 06/29/18 11:04> Results - Vital Signs Recent Vital Signs: Last Vital Signs Temp 98.3 F 06/29/18 08:25 Pulse 81 06/29/18 08:25 Resp 20 06/29/18 08:25 BP 145/94 H 06/29/18 08:25 Pulse Ox 98 06/29/18 08:25 - Labs Result Diagrams: 06/28/18 22:01 06/28/18 22:01 Labs: Laboratory Results - last 24 hr 06/29/18 06/29/18 01:40 08:00 Triglycerides 229 H Amylase 264 H Lipase 4383 H Acetaminophen < 10.0 L Attending/Attestation - Attestation I have personally seen and examined this patient.: Yes I have fully participated in the care of the patient.: Yes I have reviewed all pertinent clinical information: Yes Notes (Text): 06/29/18 11:01 Patient was seen when he was in room # 10 in the ER. Medical record was reviewed . Agree with history ,physical examination, assessment and plan.
[2018-06-29 02:57] LABS: LIPASE 4383 U/L (23-300)
[2018-06-29 03:04] VITALS: RESP 20
[2018-06-29] MEDS ORDERED: Folic Acid 1 MG, Thiamine 100 MG, Multivitamin (MVI) 10 ML in Dextrose 5% In Water 1,00... IV SCH (06:10)
--- NOTE | 2018-06-29 11:16 | US ---
Date of service: 06/29/2018 HISTORY: Jaundice, hx of alcohol abuse COMPARISON: None. TECHNIQUE: Sonographic evaluation of the right upper quadrant of the abdomen. FINDINGS: LIVER: Measures 15.3 cm in length. Hepatopedal blood flow. Fatty infiltration manifest ultrasonographically as increased echogenicity of the liver parenchyma. No mass. No intrahepatic bile duct dilatation. GALLBLADDER: Unremarkable. No gallstones. COMMON BILE DUCT: Measures 3.7 mm. No stones. No dilatation. PANCREAS: Unremarkable as visualized. No mass. No ductal dilatation. RIGHT KIDNEY: Measures 5.9 x 13 cm in length. Normal echogenicity. No calculus, mass, or hydronephrosis. AORTA: No aneurysmal dilatation. IVC: Unremarkable. OTHER FINDINGS: None . IMPRESSION: No acute findings related to/accounting for the clinical presentation. Additional benign and/or incidental findings described above.
[2018-06-29] MEDS: Enoxaparin 40 mg Syringe SC SCH (11:48)
[2018-06-29] MEDS: Multivitamin Therapeutic Tab PO SCH (11:48)
[2018-06-29 12:23] LABS: HEPATITIS B SURFACE AG Negative (NEGATIVE)
[2018-06-29 12:29] LABS: HEPATITIS A IGM NEGATIVE (NEGATIVE); HEPATITIS B CORE AB NEGATIVE (NEGATIVE)
--- NOTE | 2018-06-29 12:36 | CARD ---
APPROVED REPORT Date of service: 06/29/2018 EKG Measurement Heart [id number] AR [id number] <Conclusion> Normal sinus rhythm Left anterior fascicular block Abnormal ECG
[2018-06-29 12:41] LABS: HEPATITIS C ANTIBODY NEGATIVE (NEGATIVE)
[2018-06-30] MEDS: Pantoprazole 40 mg EC Tab PO SCH (06:16)
[2018-06-30 06:27] LABS: BASO # 0.06 K/mm3 (0.0-2.0); BASO % 0.7 % (0.0-3.0); EOS # 0.2 (0.0-0.7); EOS % 2.4 % (1.5-5.0); GRAN # 5.45 (1.4-6.5); GRAN % 67.4 % (50.0-68.0); HEMOGLOBIN 13.8 g/dL (14.0-18.0); LYMPH # 1.6 (1.2-3.4); LYMPH % 19.8 % (22.0-35.0); MEAN CELL VOLUME 84.3 fl (80.0-105.0); MEAN CORPUSCULAR HEMOGLOBIN 28.2 pg (25.0-35.0); MEAN CORPUSCULAR HGB CONC 33.5 g/dl (31.0-37.0); MEAN PLATELET VOLUME 9.4 fl (7.0-11.0); MONO # 0.8 (0.1-0.6); MONO % 9.7 % (1.0-6.0); RBC 4.89 10^6/uL (3.5-6.1); RED CELL DISTRIBUTION WIDTH 21.6 % (11.5-14.5); WHITE BLOOD COUNT 8.1 10^3/ul (4.5-11.0)
[2018-06-30 06:59] LABS: ALB/GLOB RATIO 1.1 (1.1-1.8); ALBUMIN 3.3 g/dL (3.0-4.8); ALT/SGPT 374 U/L (7-56); AST/SGOT 226 U/L (17-59); BLOOD UREA NITROGEN 13 mg/dL (7-21); CALCIUM 8.6 mg/dL (8.4-10.5); GFR AFRICAN-AMERICAN > 60; GFR NON-AFRICAN AMERICAN > 60
--- NOTE | 2018-06-30 07:11 | CON ---
DATE: 06/29/2018 HISTORY OF PRESENT ILLNESS: Mr. Mitchell is a 53-year-old white male with past medical history of acid reflux, controlled on Protonix; diverticulitis; heavy alcohol abuse who was admitted to the hospital with yellow eyes. The patient was seen in the ER yesterday, subsequently came back today for admission. The patient denied any abdominal pain, hematemesis, rectal bleeding, hematuria. Also denies fever, chills, chest pain, diarrhea. The patient has a heavy alcohol intake up to two days ago which consisted of multiple pints of vodka plus 6 packs of Spiked Cider Sauce. The patient has no history of "cirrhosis," liver disease, gallbladder problems including stones. At the bedside this morning, patient denied any abdominal pain and he wants to know what is his next meal is going to be. PHYSICAL EXAMINATION: VITAL SIGNS: I reviewed the patient's vital signs . The patient is afebrile. HEENT: Significant for yellowness of his eyes. Mouth somewhat dry. LUNGS: Decreased breath sounds at the bases. HEART: Regular rhythm. ABDOMEN: Soft, no tenderness elicited in any quadrant. LABORATORY DATA: Consists of WBC of 8.3 with H and H are 13 and 39, platelet count of 176. INR is within normal limits. Temperature indicates as of yesterday bilirubin of 11.6 with AST and ALT ratio of 331/335, triglycerides elevated to 29, amylase 264 with a lipase values extend between 3800 and 4300, the latter value as of this morning. I reviewed the ultrasound in person which reveals increasing size of pancreatic head, no dilatation of pancreatic duct or bile duct, both were within normal limits. There is no cirrhosis either. The pancreas which appears to be within normal limits. There is no splenic vein thrombosis. There are no gallstones noted in the bile duct extending as far down near the ampulla as possible. ASSESSMENT AND PLAN: This is a 53-year-old white male, alcoholic, admitted with elevated LFTs and bilirubin and probable pancreatitis of the head. This patient's current management which recently was discussed with Dr. Kong. Note that, since this is pancreatic head enlargement only, we suggest that if this does not resolve in a relatively short order the patient should undertake possibly or MRCP. As of right now, we will continue current regimen with fluids and conservative treatment. His LFTs trends will be checked periodically. Levi Wells DO
[2018-06-30] MEDS: Enoxaparin 40 mg Syringe SC SCH (10:12)
[2018-06-30] MEDS: Multivitamin Therapeutic Tab PO SCH (10:12)
--- NOTE | 2018-06-30 10:43 | PN ---
DATE: 06/30/2018 SUBJECTIVE: I saw Mr. Mitchell this morning. He is a 53-year-old white male admitted with history of recent yellowing of the eyes, elevated LFTs, elevated lipase. Patient has past medical history of severe acid reflux with diverticulitis, also has history of significant alcohol abuse. He currently denies hematemesis, rectal bleeding, abdominal pain; also notes this morning at bedside that his urine is slightly more of a straw color relative to when he was admitted. Patient had an ultrasound yesterday, which I reported on my consultation and this was discussed with Dr. Kong. Patient's diet was advanced GI and apparently, he had no complaints. PHYSICAL EXAMINATION: VITAL SIGNS: I reviewed this patient's vital signs. HEENT: Still significant for some yellowness of the eyes. LUNGS: Decreased breath sounds, basilar. HEART: Regular rhythm. ABDOMEN: Soft. No tenderness elicited. Nondistended. LABORATORY DATA: Pending for today. I reviewed the interpretation of the ultrasound by the radiologist. Then, I examined this ultrasound exam in person at bedside yesterday when it was being done. I reviewed in this regard to Dr. Kong as well. Note that it does have some increasing size of the pancreatic head. There is no bile duct dilatation. I could not see any stones in the bile duct at level proximal to the ampulla. He does have pancreatic calcifications. small amount of sludge in the gallbladder, but no stones. The hepatic vasculature is within normal limits. OVERALL ASSESSMENT: This is a 53-year-old white male alcoholic, admitted with scleral icterus, elevated liver function tests. Lab data is pending for this morning. Since he has tolerated his diet, I will leave it to the discretion of the of the house staff, Dr. Kong when they want to discharge this patient. I reviewed dietary issues, source, antireflux precautions and alcohol use with the patient in detail at bedside. If discharged, he will follow up with Dr. Chauhan. Levi Wells DO
[2018-06-30] MEDS ORDERED: POLYETHYLENE GLYCOL 3350 17 GM/Dose PACKET PO ONE (11:14)
[2018-06-30] MEDS: Sodium Chloride 0.9% 1,000 ML IV SCH ×2 (11:19→20:58)
[2018-06-30 14:09] LABS: BARBITURATES, UR NEGATIVE (NEGATIVE); BENZODIAZEPINES, UR NEGATIVE (NEGATIVE); OPIATES, UR NEGATIVE (NEGATIVE); PHENCYCLIDINE, UR NEGATIVE (NEGATIVE)
--- NOTE | 2018-06-30 16:46 | CP.PCM.PN ---
<Julio Cesar Orr - Last Filed: 06/30/18 20:33> Subjective - Date & Time of Evaluation Date of Evaluation: 06/30/18 Time of Evaluation: 07:00 - Subjective Subjective: Julio Cesar Orr PGY-[address] Crespo Patient seen and examined at bedside. No overnight events occurred. Ativan was given once last night. Patient finished banana bag. Patient has not had any complaints but continues to complain of scleral icterus. Patient denies chest pain, heart palpitations, shortness of breath, abdominal pain, n/v/d, dysuria, and hematuria. Objective - Vital Signs/Intake and Output Vital Signs (last 24 hours): Temp Pulse Resp BP Pulse Ox 98.3 F 88 20 134/88 97 06/30/18 08:31 06/30/18 08:31 06/30/18 08:31 06/30/18 08:31 06/30/18 08:31 Intake and Output: 06/30/18 06/30/18 06:59 18:59 Intake Total 300 960 Balance 300 960 - Medications Medications: Current Medications Enoxaparin Sodium (Lovenox) 40 mg SC DAILY [facility] PRN Reason: Protocol Last Admin: 06/30/18 10:12 Dose: 40 mg Folic Acid (Folic Acid) 1 mg PO DAILY [facility] Last Admin: 06/30/18 10:12 Dose: 1 mg Sodium Chloride (Sodium Chloride 0.9%) 1,000 mls @ 100 mls/hr IV .Q10H ANUSHA Stop: 07/01/18 10:00 Last Admin: 06/30/18 11:19 Dose: 100 mls/hr Lorazepam (Ativan) 2 mg IVP Q6H PRN; Protocol PRN Reason: Symptoms of alcohol withdrawl Last Admin: 06/30/18 11:18 Dose: 2 mg Multivitamins (Thera Tab) 1 tab PO 0800 [facility] Last Admin: 06/30/18 10:12 Dose: 1 tab Ondansetron HCl (Zofran Inj) 4 mg IVP Q6H PRN PRN Reason: Nausea/Vomiting Pantoprazole Sodium (Protonix Ec Tab) 40 mg PO 0600 [facility] Last Admin: 06/30/18 06:16 Dose: 40 mg Thiamine HCl (Vitamin B1 Tab) 100 mg PO DAILY [facility] Last Admin: 06/30/18 10:12 Dose: 100 mg - Labs Labs: 06/30/18 05:50 06/30/18 05:50 PT 12.5 SECONDS (9.4-12.5) 06/28/18 22:01 INR 1.09 (0.93-1.08) H 06/28/18 22:01 APTT 25.6 Seconds (25.1-36.5) 06/28/18 22:01 - Constitutional Appears: Well, Non-toxic, No Acute Distress - Head Exam Head Exam: ATRAUMATIC, NORMOCEPHALIC - Eye Exam Eye Exam: EOMI, PERRL, Scleral icterus - Respiratory Exam Respiratory Exam: Clear to Ausculation Bilateral, NORMAL BREATHING PATTERN - Cardiovascular Exam Cardiovascular Exam: REGULAR RHYTHM, RRR - GI/Abdominal Exam GI & Abdominal Exam: Soft, Normal Bowel Sounds - Extremities Exam Extremities Exam: Full ROM, Normal Inspection - Neurological Exam Neurological Exam: Alert, Awake, CN II-XII Intact, Oriented x3 Neuro motor strength exam: Left Upper Extremity: 5, Right Upper Extremity: 5, Left Lower Extremity: 5, Right Lower Extremity: 5 - Psychiatric Exam Psychiatric exam: Normal Affect, Normal Mood - Skin Skin Exam: absent: Normal Color (jaundice) Assessment and Plan - Assessment and Plan (Free Text) Assessment: 53 year old male with a PMH of GERD, diverticulitis, and alcohol abuse, presents to the emergency department, after leaving AMA yesterday for similar complaints, complaining of yellowing to bilateral eyes. Plan: Alcoholic liver disease: -AST: 226 from 331, ALT: 379 from 345, Tbili:5.8 from 11.6; Direct bili: 4.2 -Increased AST/ALT, Tbili, Dbili likely elevated due to alcoholic liver disease. -Scleral icterus and jaundice present on exam -Hepatitis panel is negative. -GI/hepatic diet -CT non contrast: AP shows no acute/significant findings -UA: protein 30, Glucose 100, Ketones trace, Bilirubin Large, LE large. -RUQ US: no acute findings -GI Consulted, Dr Wells. Follow recommendations. EtOH Abuse/ Withdrawal -ordered CIWA protocol. CIWA is 0 today. -MELD score: 15 -Seizure precautions -Ativan 2mg Q6H PRN. Patient had one dose of ativan 2 mg last night. -Ordered Folic acid and B12 PO daily -UDS: negative -EtOH Cessation suggested and discussed Elevated Lipase; -No GI complaints assoc w/ pancreatitis at this time; no N/V -CT: AP shows no acute pathology -Lipase increased to 4383 yesterday from 3890 2 days ago. NABILA: -Cr 1.1 from 1.3. NABILA resolved. -NS 150ml/hr -Reassess BUN/Cr in AM Constipation: -Miralax 17 gm -Last BM was 2 days ago. Hx GERD -Hb 13.8 -No active bleeding appreciated -GI/Hepatic diet -Protonix 40 QD DVT ppx: Enoxaparin 40 mg Patient seen and evaluated with Dr. Zak Orr PGY-1 <Lisa Crespo R - Last Filed: 07/01/18 20:37> Objective - Vital Signs/Intake and Output Vital Signs (last 24 hours): Temp Pulse Resp BP Pulse Ox 98.2 F 97 H 20 104/100 H 99 07/01/18 08:38 07/01/18 08:38 07/01/18 08:38 07/01/18 08:38 07/01/18 08:38 - Labs Labs: 07/01/18 09:00 07/01/18 09:00 PT 12.5 SECONDS (9.4-12.5) 06/28/18 22:01 INR 1.09 (0.93-1.08) H 06/28/18 22:01 APTT 25.6 Seconds (25.1-36.5) 06/28/18 22:01 Attending/Attestation - Attestation I have personally seen and examined this patient.: Yes I have fully participated in the care of the patient.: Yes I have reviewed all pertinent clinical information, including history, physical exam and plan: Yes Notes (Text): Patient seen and examined by me at 09:45AM 06/30/18 with resident. Patient is new to me. Case discussed with Dr. Butcher. Case including HPI, physical exam , and assessment and plan discussed with resident. Agree with above with following additions/corrections. Patient is a 53-year-old male with past medical history significant for GERD, diverticulitis, and alcohol abuse that presented to the emergency room with scleral icterus. Patient states that he is feeling pretty good. Patient states that prior to coming into the emergency room he was binge drinking. He states he binge drinks approximately twice a year. He denies any nausea, vomiting, or abdominal pain. Patient is tolerating his diet. Patient states that he has not had a bowel movement since 06/28/2018. She denies any chest pain or shortness of breath. No headaches or dizziness. No dysuria. No fevers or chills. Physical exam: Gen: Awake and alert sitting up in bed in no acute distress HEENT: Normocephalic atraumatic. Extraocular muscles intact, pupils equal reactive. Positive scleral icterus. Oropharynx is pink and moist, no pharyngeal erythema or exudate appreciated. Neck is supple. Cardiovascular:Normal S1, S2. No murmurs, rubs, or gallops appreciated Pulmonary: Normal respiratory effort. No rhonchi, rales or wheezing appreciated. Gastrointestinal: Soft, nontender, nondistended, positive bowel sounds all 4 quadrants, no guarding. Musculoskeletal: Moves all extremities, no calf tenderness, no edema appreciated Central nervous system: AAO x 3. CN 2-12 grossly intact. Sensation intact Dermatologic: Skin warm and dry. Jaundiced. Assessment and plan: Patient is a 53-year-old male with past medical history significant for GERD, diverticulitis, and alcohol abuse that presented to the emergency room with scleral icterus. 1. Hyperbilirubinemia, elevated LFTs, Jaundice, elevated Lipase with probable pancreatitis of the pancreatic head. Improving. LFTs and bilirubin downtrending. Patient tolerating diet. GI following, recommendations appreciated. Abdominal ultrasound per radiologist showed no acute findings. Continue to monitor trend. 2. ETOH abuse. Patient counseled at length on cessation. Continue CIWA protocol. Continue multivitamin, folic acid, and thiamine. Monitor for withdrawal symptoms. 3. History of GERD. Continue Protonix 4. GI/DVT prophylaxis. Protonix and lovenox 5. Patient is a full code. Case was discussed in detail with the patient and medical transcription radiology regarding current diagnosis and treatment plan.
[2018-06-30] MEDS ORDERED: POLYETHYLENE GLYCOL 3350 17 GM/Dose PACKET PO SCH (18:00)
[2018-07-01] MEDS: Pantoprazole 40 mg EC Tab PO SCH (05:09)
[2018-07-01] MEDS: Sodium Chloride 0.9% 1,000 ML IV SCH (06:43)
--- NOTE | 2018-07-01 08:08 | CP.PCM.PN ---
Subjective - Date & Time of Evaluation Date of Evaluation: 07/01/18 Time of Evaluation: 08:07 - Subjective Subjective: Julio Cesar Orr PGY-[address] Crespo. Objective - Vital Signs/Intake and Output Vital Signs (last 24 hours): Temp Pulse Resp BP Pulse Ox 97.6 F 91 H 20 137/89 96 06/30/18 17:26 06/30/18 17:26 06/30/18 17:26 06/30/18 17:26 06/30/18 17:26 Intake and Output: 07/01/18 07/01/18 06:59 18:59 Intake Total 1260 Balance 1260 - Medications Medications: Current Medications Enoxaparin Sodium (Lovenox) 40 mg SC DAILY AN[facility] PRN Reason: Protocol Last Admin: 06/30/18 10:12 Dose: 40 mg Folic Acid (Folic Acid) 1 mg PO DAILY [facility] Last Admin: 06/30/18 10:12 Dose: 1 mg Sodium Chloride (Sodium Chloride 0.9%) 1,000 mls @ 100 mls/hr IV .Q10H ANUSHA Stop: 07/01/18 10:00 Last Admin: 07/01/18 06:43 Dose: 100 mls/hr Lorazepam (Ativan) 2 mg IVP Q6H PRN; Protocol PRN Reason: Symptoms of alcohol withdrawl Last Admin: 07/01/18 04:26 Dose: 2 mg Multivitamins (Thera Tab) 1 tab PO 0800 [facility] Last Admin: 06/30/18 10:12 Dose: 1 tab Ondansetron HCl (Zofran Inj) 4 mg IVP Q6H PRN PRN Reason: Nausea/Vomiting Pantoprazole Sodium (Protonix Ec Tab) 40 mg PO 0600 [facility] Last Admin: 07/01/18 05:09 Dose: 40 mg Thiamine HCl (Vitamin B1 Tab) 100 mg PO DAILY [facility] Last Admin: 06/30/18 10:12 Dose: 100 mg - Labs Labs: 06/30/18 05:50 06/30/18 05:50 PT 12.5 SECONDS (9.4-12.5) 06/28/18 22:01 INR 1.09 (0.93-1.08) H 06/28/18 22:01 APTT 25.6 Seconds (25.1-36.5) 06/28/18 22:01
[2018-07-01 08:39] VITALS: BP 104/100; PULSE 97; TEMP 98.2; O2SAT 99
[2018-07-01] MEDS: Multivitamin Therapeutic Tab PO SCH (09:02)
[2018-07-01] MEDS: Enoxaparin 40 mg Syringe SC SCH (09:02)
[2018-07-01 09:08] LABS: BASO # 0.02 K/mm3 (0.0-2.0); BASO % 0.2 % (0.0-3.0); EOS # 0.2 (0.0-0.7); EOS % 1.7 % (1.5-5.0); GRAN # 5.79 (1.4-6.5); GRAN % 66.6 % (50.0-68.0); HEMOGLOBIN 14.2 g/dL (14.0-18.0); LYMPH % 22.5 % (22.0-35.0); MEAN CELL VOLUME 85.3 fl (80.0-105.0); MEAN CORPUSCULAR HEMOGLOBIN 28.6 pg (25.0-35.0); MEAN CORPUSCULAR HGB CONC 33.5 g/dl (31.0-37.0); MONO # 0.8 (0.1-0.6); RBC 4.97 10^6/uL (3.5-6.1); RED CELL DISTRIBUTION WIDTH 21.9 % (11.5-14.5); WHITE BLOOD COUNT 8.7 10^3/ul (4.5-11.0)
--- NOTE | 2018-07-01 09:11 | PN ---
DATE: 07/01/2018 SUBJECTIVE: I saw Mr. Mitchell this morning. This is a 53-year-old white male admitted with scleral icterus, elevated LFTs and lipase. Again, the patient has a past medical history of severe acid reflux, diverticulitis and also, history of significant alcohol abuse in the past. At bedside this morning, the patient denied any hematemesis, rectal bleeding or significant abdominal pain. Patient noted that his urine has cleared significantly, is currently straw colored. He tolerated his meal without any problems yesterday. PHYSICAL EXAMINATION: VITAL SIGNS: I reviewed this patient's vital signs. HEENT: Noncontributory. LUNGS: Decreased breath sounds, basilar. HEART: Regular rhythm. ABDOMEN: Soft. No tenderness elicited in any quadrant. The abdomen is not distended. LABORATORY DATA: Pending for today, but yesterday, his white count was 8000, H and H 13 and 41. AST and ALT yesterday, 226 and 374. Bilirubin has come down to 5.8. OVERALL ASSESSMENT: This is a 53-year-old white male with history of alcohol abuse, here with pancreatitis, elevated liver function tests and lipase. In summary, the patient's labs have improved, however, more lab data is pending for this morning. He is currently asymptomatic. One might consider discharging the patient on a very restricted diet with followup in either clinic or primary medical doctor's office in a short time period to check labs. I reviewed dietary discretion with this patient in detail on multiple occasions as well as a suggestion to stop drinking alcohol. One might consider discharge sometime later after review of today's labs. Levi Wells DO
[2018-07-01 09:18] LABS: ALB/GLOB RATIO 1.2 (1.1-1.8); ALBUMIN 3.7 g/dL (3.0-4.8); ALT/SGPT 412 U/L (7-56); AST/SGOT 211 U/L (17-59); BLOOD UREA NITROGEN 11 mg/dL (7-21); CALCIUM 8.8 mg/dL (8.4-10.5); GFR AFRICAN-AMERICAN > 60; GFR NON-AFRICAN AMERICAN > 60
--- NOTE | 2018-07-01 20:22 | CP.PCM.DIS ---
Provider - Provider Date of Admission: 06/28/18 22:42 Attending physician: Lisa Crespo DO Primary care physician: Naren Chauhan MD Consults: GI: Dr. Wells Time Spent in preparation of Discharge (in minutes): 100 Diagnosis - Discharge Diagnosis (1) Alcohol abuse Status: Acute Hospital Course - Lab Results Lab Results: Most Recent Lab Values WBC 8.7 10^3/ul (4.5-11.0) 07/01/18 09:00 RBC 4.97 10^6/uL (3.5-6.1) 07/01/18 09:00 Hgb 14.2 g/dL (14.0-18.0) 07/01/18 09:00 Hct 42.4 % (42.0-52.0) 07/01/18 09:00 MCV 85.3 fl (80.0-105.0) 07/01/18 09:00 MCH 28.6 pg (25.0-35.0) 07/01/18 09:00 MCHC 33.5 g/dl (31.0-37.0) 07/01/18 09:00 RDW 21.9 % (11.5-14.5) H 07/01/18 09:00 Plt Count 251 10^3/uL (120.0-450.0) 07/01/18 09:00 MPV 9.0 fl (7.0-11.0) 07/01/18 09:00 Gran % 66.6 % (50.0-68.0) 07/01/18 09:00 Lymph % (Auto) 22.5 % (22.0-35.0) 07/01/18 09:00 [place] % (Auto) 9.0 % (1.0-6.0) H 07/01/18 09:00 Eos % (Auto) 1.7 % (1.5-5.0) 07/01/18 09:00 Baso % (Auto) 0.2 % (0.0-3.0) 07/01/18 09:00 Gran # 5.79 (1.4-6.5) 07/01/18 09:00 Lymph # (Auto) 2.0 (1.2-3.4) 07/01/18 09:00 [place] # (Auto) 0.8 (0.1-0.6) H 07/01/18 09:00 Eos # (Auto) 0.2 (0.0-0.7) 07/01/18 09:00 Baso # (Auto) 0.02 K/mm3 (0.0-2.0) 07/01/18 09:00 PT 12.5 SECONDS (9.4-12.5) 06/28/18 22:01 INR 1.09 (0.93-1.08) H 06/28/18 22:01 APTT 25.6 Seconds (25.1-36.5) 06/28/18 22:01 Sodium 140 mmol/L (132-148) 07/01/18 09:00 Potassium 4.2 mmol/L (3.6-5.0) 07/01/18 09:00 Chloride 101 mmol/L (98-107) 07/01/18 09:00 Carbon Dioxide 28 mmol/L (21-33) 07/01/18 09:00 Anion Gap 15 (10-20) 07/01/18 09:00 BUN 11 mg/dL (7-21) 07/01/18 09:00 Creatinine 1.1 mg/dl (0.8-1.5) 07/01/18 09:00 Est GFR ( Amer) > 60 07/01/18 09:00 Est GFR (Non-Af Amer) > 60 07/01/18 09:00 Random Glucose 101 mg/dL (70-110) 07/01/18 09:00 Calcium 8.8 mg/dL (8.4-10.5) 07/01/18 09:00 Total Bilirubin 5.2 mg/dL (0.2-1.3) H 07/01/18 09:00 Direct Bilirubin 4.2 mg/dL (0.0-0.4) H 06/30/18 08:00 AST 211 U/L (17-59) H 07/01/18 09:00 ALT 412 U/L (7-56) H 07/01/18 09:00 Alkaline Phosphatase 79 U/L (38-126) 07/01/18 09:00 Total Protein 6.7 g/dL (5.8-8.3) 07/01/18 09:00 Albumin 3.7 g/dL (3.0-4.8) 07/01/18 09:00 Globulin 3.0 gm/dL 07/01/18 09:00 Albumin/Globulin Ratio 1.2 (1.1-1.8) 07/01/18 09:00 Triglycerides 229 mg/dL (35-160) H 06/29/18 01:40 Amylase 264 U/L (35-125) H 06/29/18 01:40 Lipase 4383 U/L (23-300) H 06/29/18 01:40 Urine Color [employer] (YELLOW) 06/28/18 22:30 Urine Appearance Clear (CLEAR) 06/28/18 22:30 Urine pH 8.0 (4.7-8.0) 06/28/18 22:30 Ur Specific [place] 1.015 (1.005-1.035) 06/28/18 22:30 Urine Protein 30 mg/dL (<30 mg/dL) H 06/28/18 22:30 Urine Glucose (UA) 100 mg/dL (NEGATIVE) H 06/28/18 22:30 Urine Ketones Trace mg/dL (NEGATIVE) H 06/28/18 22:30 Urine Blood Negative (NEGATIVE) 06/28/18 22:30 Urine Nitrate Negative (NEGATIVE) 06/28/18 22:30 Urine Bilirubin Large (NEGATIVE) H 06/28/18 22:30 Urine Urobilinogen >=8.0 E.U./dL (<1 E.U./dL) 06/28/18 22:30 Ur Leukocyte Esterase Trace Maxx/uL (NEGATIVE) H 06/28/18 22:30 Urine RBC 0 - 2 /hpf (0-2) 06/28/18 22:30 Urine WBC 0 - 2 /hpf (0-6) 06/28/18 22:30 Ur Epithelial Cells 0 - 2 /hpf (0-5) 06/28/18 22:30 Amorphous Sediment Small 06/28/18 22:30 Urine Bacteria Trace (NEG) 06/28/18 22:30 Urine Opiates Screen Negative (NEGATIVE) 06/30/18 12:13 Urine Methadone Screen Negative (NEGATIVE) 06/30/18 12:13 Acetaminophen < 10.0 ug/ml (10.0-20.0) L 06/29/18 08:00 Ur Barbiturates Screen Negative (NEGATIVE) 06/30/18 12:13 Ur Phencyclidine Scrn Negative (NEGATIVE) 06/30/18 12:13 Ur Amphetamines Screen Negative (NEGATIVE) 06/30/18 12:13 U Benzodiazepines Scrn Negative (NEGATIVE) 06/30/18 12:13 U Oth Cocaine Metabols Negative (NEGATIVE) 06/30/18 12:13 U Cannabinoids Screen Negative (NEGATIVE) 06/30/18 12:13 Alcohol, Quantitative < 10 mg/dL (0-10) 06/28/18 22:01 Hepatitis A IgM Ab Negative (NEGATIVE) 06/29/18 07:30 Hep Bs Antigen Negative (NEGATIVE) 06/29/18 07:30 Hep B Core IgM Ab Negative (NEGATIVE) 06/29/18 07:30 Hepatitis C Antibody Negative (NEGATIVE) 06/29/18 07:30 - Hospital Course Hospital Course: Julio Cesar Orr, PGY-1, Internal Medicine Discharge Summary For Dr. Lisa Crespo. 53 year old male with past medical history of GERD, diverticulitis, and alcohol abuse presents with scleral icterus and jaundice. Patient was evaluated for causes of jaundice and scleral icterus. On presentation, bilirubin was 11.6 on , which trended down to 5.2 today. AST trended down from 331 on 06/28 to 211 today. However, ALT trended up from 345 on 06/28 to 412 today. Patient had Abdominal CT performed on 06/28, which showed hepatic steatosis, no common bile duct dilation, and unremarkable gallbladder. On review by Dr. Grande, he believed there might have been enlargement of the head of the pancreas. Patient did not complain of abdominal pain but did have an elevated lipase of 3890 on . He had never complained of abdominal pain, nausea, or vomiting, however. Abdominal Ultrasound was also performed on 06/28 which showed no acute process. Patient had not complained of any gastrointestinal symptoms other than jaundice and scleral icterus and patient's bilirubin and AST had been improving, while it is of concern that ALT had been increasing. Patient had been on CIWA protocol throughout his stay. He has not shown any symptoms of alcohol withdrawal throughout his hospital stay. Patient initially had a creatinine of 1.3 which trended down to 1.1 without intervention. Patient was constipated and was given miralax. Following miralax, patient had 2 normal bowel movements the yesterday. Patient has a history of GERD but had a hemoglobin of 13.8 before discharge. In addition, patient was on protonix 40 mg through his stay. Dr. Wells recommends that the patient follow up outpatient with his PCP, Dr. Chauhan. Discharge Exam - Head Exam Head Exam: ATRAUMATIC, NORMOCEPHALIC - Eye Exam Eye Exam: EOMI, PERRL, Scleral icterus - Respiratory Exam Respiratory Exam: Clear to PA & Lateral, NORMAL BREATHING PATTERN - Cardiovascular Exam Cardiovascular Exam: RRR - GI/Abdominal Exam GI & Abdominal Exam: Normal Bowel Sounds, Soft - Extremities Exam Extremities exam: full ROM, normal inspection - Neurological Exam Neurological exam: Alert, CN II-XII Intact, Normal Gait, Oriented x3, Reflexes Normal - Psychiatric Exam Psychiatric exam: Agitated (mild) - Skin Additional comments: Jaundiced Discharge Plan - Discharge Medications Prescriptions: Folic Acid 1 mg PO DAILY #30 tab Multivitamin Therapeutic Tab [Thera Tab] 1 tab PO 0800 #30 tab - Follow Up Plan Condition: STABLE Disposition: HOME/ ROUTINE Instructions: Pancreatitis (DC), Alcohol Abuse and Alcoholism (DC) Additional Instructions: Please follow up with Primary medical doctor, Dr. Naren Chauhan within 3 days. You will need repeat blood work to monitor for improvement in your liver numbers within 3 days with your primary care doctor. Please refrain from alcohol use, as it can worsen your liver function and jaundice. In addition, take it easy with the diet and eat soft/liquid foods until liver function improves to baseline. Please continue to take Multivitamin and folic acid daily. If symptoms reoccur, please return to the nearest Emergency department. Referrals: Naren Chauhan MD [Primary Care Provider] -
== END 2018-07-01 16:51 | disposition home or self-care (01) | DRG 439 ==
LOC: ED 20:07 → ERH 22:42 → 3RSO 06-29
PROVIDERS: ADMIT Internal Medicine; ATTEND Hospitalist
DX: K85.90 Acute pancreatitis without necrosis or infection, unspecified (principal); F10.239 Alcohol dependence with withdrawal, unspecified; K21.9 Gastro-esophageal reflux disease without esophagitis; K76.0 Fatty (change of) liver, not elsewhere classified; K59.00 Constipation, unspecified; Z80.1 Family history of malignant neoplasm of trachea, bronchus and lung; Z87.891 Personal history of nicotine dependence